=== PATIENT | male | born 1985 | race Caucasian/White ===

== ENCOUNTER 2016-08-10 11:28 | Emergency (ER) | payer MEDICAID, OTHER ==
[~2016-08-10] VITALS: Ht 165.1 cm; Wt 90.7 kg
[2016-08-10 11:28] VITALS: BP 170/105
[2016-08-10] MEDS ORDERED: AMOX500C PO (12:03)
== END 2016-08-10 12:07 | disposition home or self-care (01) ==
LOC: M ED 12:03
DX: J02.0 Streptococcal pharyngitis (principal); F17.200 Nicotine dependence, unspecified, uncomplicated

== ENCOUNTER 2017-05-20 12:16 | Emergency (ER) | payer OTHER ==
[2017-05-20] MEDS: AMOXICILLIN 500 MG CAP PO (12:48)
[2017-05-20] MEDS: IBUPROFEN 800 MG TAB PO (12:48)
== END 2017-05-20 12:50 | disposition home or self-care (01) ==
LOC: M ED 12:16
DX: K02.9 Dental caries, unspecified (principal); R68.84 Jaw pain; R22.0 Localized swelling, mass and lump, head; F17.210 Nicotine dependence, cigarettes, uncomplicated
CPT/HCPCS: 99282

== ENCOUNTER → 2017-06-20 | Outpatient (REF) | payer OTHER ==
[2017-06-20 12:06] LABS: ALBUMIN 4.1 GM/DL (3.2-5.2); ANION GAP 4 MEQ/L (8-16); BLOOD UREA NITROGEN 18 MG/DL (7-18); CARBON DIOXIDE LEVEL 28 MEQ/L (21-32); CHLORIDE LEVEL 106 MEQ/L (98-107); CREATININE FOR GFR 1.02 MG/DL (0.70-1.30); GLOMERULAR FILTRATION RATE > 60.0 (>60); GLUCOSE, FASTING 102 MG/DL (70-100); PHOSPHORUS LEVEL 2.7 MG/DL (2.5-4.9); POTASSIUM SERUM 4.1 MEQ/L (3.5-5.1); SODIUM LEVEL 138 MEQ/L (136-145)
== END ==
LOC: M SFHCPLAZ 08:38
DX: I10 Essential (primary) hypertension (principal)

== ENCOUNTER → 2018-03-23 | Outpatient (REF) | payer OTHER ==
[~2018-03-23] MED LIST: AMOX500C PO; AUGM875T28 PO; IBUP80TA PO; LISI20TA3 PO
[2018-03-23 13:19] LABS: INFLUENZA A AMPLIFICATION NEGATIVE (NEGATIVE); INFLUENZA B AMPLIFICATION NEGATIVE (NEGATIVE)
== END ==
LOC: M LAB REF 12:34
PROVIDERS: ATTEND Physician Assistant Medical
DX: J11.1 Influenza due to unidentified influenza virus with other respiratory manifestations (principal)

== ENCOUNTER → 2018-10-25 | Outpatient (REF) | payer OTHER ==
[~2018-10-25] MED LIST changes: +LISI20TA20 PO; -LISI20TA3 PO
== END ==
LOC: M SFHCPLAZ 17:16
DX: R00.0 Tachycardia, unspecified (principal)

== ENCOUNTER 2018-11-21 08:47 | Emergency (ER) | payer OTHER ==
[~2018-11-21] VITALS: Ht 165.1 cm; Wt 100.2 kg
[2018-11-21] MEDS ORDERED: OMEP-221 (08:54)
[2018-11-21] MEDS ORDERED: CARA1TAB6 PO (10:27)
[2018-11-21 10:35] VITALS: BP 148/87
== END 2018-11-21 10:45 | disposition home or self-care (01) ==
LOC: M ED 08:47
DX: K29.70 Gastritis, unspecified, without bleeding (principal); K21.9 Gastro-esophageal reflux disease without esophagitis; I10 Essential (primary) hypertension; F17.200 Nicotine dependence, unspecified, uncomplicated; Z79.899 Other long term (current) drug therapy

== ENCOUNTER → 2018-12-04 | Outpatient (REF) | payer OTHER ==
[~2018-12-04] MED LIST changes: +CARA1TAB6 PO; +OMEP-221
== END ==
LOC: M SFHCPLAZ 12:15
PROVIDERS: ATTEND Family Medicine
DX: R00.0 Tachycardia, unspecified (principal); L83 Acanthosis nigricans; Z53.9 Procedure and treatment not carried out, unspecified reason

== ENCOUNTER → 2018-12-05 | Outpatient (CLI) | payer OTHER ==
[2018-12-05 09:48] LABS: BASO # 0.1 10^3/uL (0.0-0.2); BASO % 0.6 % (0.0-1.0); EOS # 0.5 10^3/uL (0.0-0.5); EOS % 5.9 % (0.0-3.0); HEMATOCRIT 49.7 % (42.0-52.0); HEMOGLOBIN 16.9 g/dl (13.5-17.5); MEAN CORPUSCULAR HEMOGLOBIN 30.4 pg (27.0-33.0); MEAN CORPUSCULAR VOLUME 89.4 fl (80.0-96.0); MONO % 10.8 % (0.0-5.0); NEUTROPHILS # 4.2 10^3/uL (1.5-8.5); NEUTROPHILS % 48.1 % (36.0-66.0); PLATELET COUNT, AUTOMATED 191 10^3/uL (150-450); RED BLOOD COUNT 5.56 10^6/uL (4.30-6.10); WHITE BLOOD COUNT 8.8 10^3/uL (4.0-10.0)
[2018-12-05 10:06] LABS: HEMOGLOBIN A1c 5.8 %
[2018-12-05 10:37] LABS: BLOOD UREA NITROGEN 17 MG/DL (7-18); CALCIUM LEVEL 8.5 MG/DL (8.5-10.1); CARBON DIOXIDE LEVEL 29 MEQ/L (21-32); CHLORIDE LEVEL 106 MEQ/L (98-107); CHOLESTEROL LEVEL 219 MG/DL (<200); CHOLESTEROL RISK RATIO 8.111 (<5); CREATININE FOR GFR 1.05 MG/DL (0.70-1.30); GLOMERULAR FILTRATION RATE > 60.0 (>60); GLUCOSE, FASTING 127 MG/DL (70-100); HDL CHOLESTEROL 27 MG/DL (>40); NON-HDL-C 192 MG/DL; POTASSIUM SERUM 4.8 MEQ/L (3.5-5.1); SODIUM LEVEL 141 MEQ/L (136-145); TRIGLYCERIDES LEVEL 2174 MG/DL (<150)
== END ==
LOC: M LAB 09:01
PROVIDERS: ATTEND Family Medicine
DX: R00.0 Tachycardia, unspecified (principal); L83 Acanthosis nigricans

== ENCOUNTER → 2018-12-06 | Outpatient (REF) | payer OTHER | LOC: M SFHCPLAZ 08:44 | PROVIDERS: ATTEND Family Medicine | DX: E78.1 Pure hyperglyceridemia (principal); Z53.9 Procedure and treatment not carried out, unspecified reason ==

== ENCOUNTER → 2018-12-11 | Outpatient (CLI) | payer OTHER ==
[2018-12-11 10:08] LABS: CHOLESTEROL LEVEL 179 MG/DL (<200); HDL CHOLESTEROL 38 MG/DL (>40); NON-HDL-C 141 MG/DL; TRIGLYCERIDES LEVEL 400 MG/DL (<150)
[2018-12-21 00:07] LABS: LIPOPROTEIN (a) <9.0 nmol/L (<75.0)
== END ==
LOC: M LAB 08:52
PROVIDERS: ATTEND Family Medicine
DX: E78.1 Pure hyperglyceridemia (principal)

== ENCOUNTER 2018-12-27 09:35 | Emergency (ER) | payer OTHER ==
[~2018-12-27] VITALS: Ht 165.1 cm; Wt 99.9 kg
[2018-12-27] MEDS ORDERED: GEMF600T5 (09:43)
[2018-12-27] MEDS ORDERED: ONDANSETRON 4MG/2ML VIAL (J2405) IV ONE (10:15)
[2018-12-27] MEDS ORDERED: NS 1,000 ML IV ONE (10:15)
[2018-12-27 10:46] LABS: BASO # 0.1 10^3/uL (0.0-0.2); BASO % 0.5 % (0.0-1.0); EOS # 0.4 10^3/uL (0.0-0.5); EOS % 3.2 % (0.0-3.0); HEMATOCRIT 50.6 % (42.0-52.0); HEMOGLOBIN 17.2 g/dl (13.5-17.5); LYMPH # 2.6 10^3/uL (1.5-5.0); LYMPH % 22.1 % (24.0-44.0); MEAN CORPUSCULAR HEMOGLOBIN 29.7 pg (27.0-33.0); MEAN CORPUSCULAR VOLUME 87.4 fl (80.0-96.0); MONO # 1.2 10^3/uL (0.0-0.8); MONO % 10.4 % (0.0-5.0); NEUTROPHILS # 7.4 10^3/uL (1.5-8.5); NEUTROPHILS % 63.1 % (36.0-66.0); PLATELET COUNT, AUTOMATED 210 10^3/uL (150-450); RED BLOOD COUNT 5.79 10^6/uL (4.30-6.10); WHITE BLOOD COUNT 11.7 10^3/uL (4.0-10.0)
[2018-12-27] MEDS ORDERED: PANTOPRAZOLE 40MG INJ (PROTONIX) (C9113) IV ONE (11:30)
[2018-12-27 11:33] LABS: ALBUMIN 3.9 GM/DL (3.2-5.2); ALT/SGPT 46 U/L (12-78); AMYLASE 80 U/L (25-115); BILIRUBIN,TOTAL 0.5 MG/DL (0.2-1.0); BLOOD UREA NITROGEN 14 MG/DL (7-18); CALCIUM LEVEL 9.2 MG/DL (8.5-10.1); CARBON DIOXIDE LEVEL 22 MEQ/L (21-32); CHLORIDE LEVEL 107 MEQ/L (98-107); GLOMERULAR FILTRATION RATE > 60.0 (>60); GLUCOSE, FASTING 93 MG/DL (70-100); H PYLORI QUALITATIVE IgG NEGATIVE (NEGATIVE); LIPASE 313 U/L (73-393); POTASSIUM SERUM 4.3 MEQ/L (3.5-5.1); SODIUM LEVEL 139 MEQ/L (136-145); TOTAL PROTEIN 7.8 GM/DL (6.4-8.2)
[2018-12-27] MEDS ORDERED: ISOVUE-370 76% 100ML VIAL (Q9967) As Ordered ONE (11:46)
[2018-12-27 13:40] LABS: APPEARANCE, URINE CLEAR (CLEAR); BACTERIA, URINE AUTO NEGATIVE (NEGATIVE); BILIRUBIN, URINE AUTO NEGATIVE (NEGATIVE); BLOOD, URINE BLOOD NEGATIVE (NEGATIVE); COLOR, URINE YELLOW (YELLOW); GLUCOSE, URINE (UA) AUTO NEGATIVE (NEGATIVE); KETONE, URINE AUTO NEGATIVE (NEGATIVE); LEUKOCYTE ESTERASE, URINE AUTO NEGATIVE (NEGATIVE); NITRITE, URINE AUTO NEGATIVE (NEGATIVE); PROTEIN, URINE AUTO NEGATIVE (NEGATIVE); RBC, URINE AUTO 0 /HPF (0-3); SQUAMOUS EPITHELIAL CELL UR AU 0 /HPF (0-6); UROBILINOGEN, URINE AUTO 0.2 mg/dL (0.0-2.0); WBC, URINE AUTO 0 /HPF (0-3)
[2018-12-27] MEDS ORDERED: KETOROLAC 30 MG/ML VIAL (J1885) IV ONE (13:45)
[2018-12-27] MEDS ORDERED: METOCLOPRAMIDE INJ 10MG/2ML VIAL (J2765) IV ONE (13:45)
--- NOTE | 2018-12-27 14:06 | REP ---
CT ABDOMEN AND PELVIS WITH IV CONTRAST: TECHNIQUE: Axial contrast enhanced images from the lung bases to the pubic symphysis using 100 mL Isovue 370 intravenous contrast material with multiplanar reformations. Visualized lung bases are clear. The liver demonstrates no mass. There are tiny gallstones in the gallbladder. There is diffuse fatty infiltration of the liver. There is no biliary dilatation or gallbladder wall edema. Spleen is normal in size with no intrinsic abnormality. The adrenal glands are normal. Tiny calcifications are scattered throughout the pancreas compatible with prior pancreatitis. There is no hydronephrosis or renal mass. There is no abdominal aortic aneurysm. There is no adenopathy. There is no free air or free fluid. There is diffuse mild to moderate dilatation of small and large bowel, filled with air and fluid without bowel wall thickening. Findings are most consistent with diffuse enteritis. There is no appendicitis. Urinary bladder is mildly distended and grossly unremarkable. Note is made of spondylolysis of L5 with mild anterior grade 1 spondylolisthesis of L5 on S1. IMPRESSION: Diffuse dilatation of small and large bowel with air and fluid of a mild to moderate degree compatible with diffuse ileus and enteritis. No bowel inflammation or appendicitis. No free air or free fluid. Tiny gallstones are seen in the gallbladder without gallbladder wall edema. There is no biliary dilatation. Tiny calcifications of the pancreas compatible with prior pancreatitis. There is bilateral spondylolysis of L5 with mild anterior grade 1 spondylolisthesis of L5 on S1. Electronically Signed by Miguel Jackson MD 12/28/2018 11:16 A
[2018-12-27] MEDS ORDERED: CIPR-249 PO (14:12)
[2018-12-27] MEDS ORDERED: FLAG500T PO (14:12)
[2018-12-27 14:19] VITALS: BP 150/84
== END 2018-12-27 14:30 | disposition home or self-care (01) ==
LOC: M ED 09:35
DX: K52.9 Noninfective gastroenteritis and colitis, unspecified (principal); K80.20 Calculus of gallbladder without cholecystitis without obstruction; M43.16 Spondylolisthesis, lumbar region; K21.9 Gastro-esophageal reflux disease without esophagitis; F17.200 Nicotine dependence, unspecified, uncomplicated; Z79.899 Other long term (current) drug therapy
CPT/HCPCS: 74177; 80053; 81001; 82150; 83690; 85025; 86677; 87507; 96361; 96374; 96375; 99284; C9113; J1885; J2405; J2765; Q9967

== ENCOUNTER → 2019-02-17 | Outpatient (CLI) | payer OTHER ==
[~2019-02-17] MED LIST changes: +CIPR-249 PO; +FLAG500T PO; +GEMF600T5
[2019-02-17 10:00] LABS: CHOLESTEROL LEVEL 234 MG/DL (<200); CHOLESTEROL RISK RATIO 8.357 (<5); HDL CHOLESTEROL 28 MG/DL (>40); NON-HDL-C 206 MG/DL; TRIGLYCERIDES LEVEL 1441 MG/DL (<150)
== END ==
LOC: M LAB 08:48
PROVIDERS: ATTEND Family Medicine
DX: E78.1 Pure hyperglyceridemia (principal)

== ENCOUNTER 2019-07-22 13:20 | Emergency (ER) | payer OTHER ==
[~2019-07-22] VITALS: Ht 167.6 cm; Wt 102.3 kg
[2019-07-22] MEDS ORDERED: ATOR40TA75 (13:29)
[2019-07-22] MEDS ORDERED: NS 1,000 ML IV ONE (14:15)
[2019-07-22 14:48] LABS: BASO # 0.1 10^3/uL (0.0-0.2); BASO % 0.6 % (0.0-1.0); EOS # 0.5 10^3/uL (0.0-0.5); EOS % 3.8 % (0.0-3.0); LYMPH # 3.3 10^3/uL (1.5-5.0); LYMPH % 25.8 % (24.0-44.0); MEAN CORPUSCULAR HEMOGLOBIN 28.8 pg (27.0-33.0); MEAN CORPUSCULAR HGB CONC 33.4 g/dl (32.0-36.5); MEAN CORPUSCULAR VOLUME 86.1 fl (80.0-96.0); MONO # 1.3 10^3/uL (0.0-0.8); MONO % 9.9 % (0.0-5.0); NEUTROPHILS # 7.5 10^3/uL (1.5-8.5); NEUTROPHILS % 58.9 % (36.0-66.0); PLATELET COUNT, AUTOMATED 200 10^3/uL (150-450)
[2019-07-22 14:51] LABS: HEMATOCRIT 52.7 % (42.0-52.0); HEMOGLOBIN 17.6 g/dl (13.5-17.5); RED BLOOD COUNT 6.12 10^6/uL (4.30-6.10); WHITE BLOOD COUNT 12.8 10^3/uL (4.0-10.0)
[2019-07-22 15:05] LABS: INR 1.05; PROTHROMBIN TIME 13.4 SECONDS (11.8-14.0)
[2019-07-22 15:13] LABS: ALBUMIN 3.9 GM/DL (3.2-5.2); ALT/SGPT 70 U/L (12-78); AMYLASE 88 U/L (25-115); BILIRUBIN,DIRECT 0.1 MG/DL (0.0-0.2); BILIRUBIN,TOTAL 0.5 MG/DL (0.2-1.0); BLOOD UREA NITROGEN 15 MG/DL (7-18); CALCIUM LEVEL 9.3 MG/DL (8.5-10.1); CARBON DIOXIDE LEVEL 26 MEQ/L (21-32); CHLORIDE LEVEL 107 MEQ/L (98-107); CK-MB VALUE MASS 5.3 NG/ML (<3.6); CPK CREATINE PHOSPHOKINASE 420 U/L (39-308); CREATININE FOR GFR 0.94 MG/DL (0.70-1.30); GLOMERULAR FILTRATION RATE > 60.0 (>60); GLUCOSE, FASTING 107 MG/DL (70-100); LIPASE 281 U/L (73-393); MB/CK RELATIVE INDEX 1.26 (< OR =4); POTASSIUM SERUM 4.2 MEQ/L (3.5-5.1); SODIUM LEVEL 139 MEQ/L (136-145); TOTAL PROTEIN 8.1 GM/DL (6.4-8.2); TROPONIN I < 0.02 NG/ML (< 0.10)
[2019-07-22] MEDS ORDERED: ISOVUE-370 76% 100ML VIAL As Ordered ONE (15:19)
--- NOTE | 2019-07-22 16:13 | REP ---
CT ABDOMEN AND PELVIS WITH IV CONTRAST: TECHNIQUE: Axial contrast enhanced images from the lung bases to the pubic symphysis using 100 mL Isovue-370 intravenous contrast material with multiplanar reformations. Visualized lung bases are clear. There is diffuse fatty infiltration of the liver. The gallbladder contains gallstones and is somewhat contracted. There is no gallbladder wall edema and no evidence of biliary dilatation. Spleen is normal in size with no intrinsic abnormality. Adrenal glands demonstrate no mass. There are multiple tiny calcifications in the body and tail of the pancreas consistent with chronic pancreatitis. There is no pancreatic duct dilatation. I seen on pancreatic mass. The kidneys demonstrate no hydronephrosis or mass. There is no abdominal aortic aneurysm. There is no adenopathy. There is no free air or free fluid. There is no bowel wall thickening and no evidence of bowel obstruction. The appendix is normal. There is no pelvic mass. The urinary bladder is mildly distended and grossly unremarkable. There is spondylolysis of L5 anterior grade 1 spondylolisthesis. IMPRESSION: No CT evidence of appendicitis. The appendix is normal. No free air or free fluid. No bowel obstruction. Gallstones in a contracted gallbladder. No gallbladder wall edema or biliary dilatation. Tiny pancreatic calcifications compatible with chronic pancreatitis. Fatty infiltration of the liver. Spondylolysis of L5 with grade 1 spondylolisthesis. Electronically Signed by Miguel Jackson MD 07/22/2019 04:57 P
[2019-07-22 16:39] VITALS: BP 179/99
[2019-07-22] MEDS ORDERED: ONDA4TAB6 PO (16:39)
--- NOTE | 2019-07-23 00:34 | ECGEPIP ---
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
== END 2019-07-22 16:56 | disposition home or self-care (01) ==
LOC: M ED 13:20
DX: K80.20 Calculus of gallbladder without cholecystitis without obstruction (principal); E86.0 Dehydration; I10 Essential (primary) hypertension; F17.210 Nicotine dependence, cigarettes, uncomplicated; Z79.899 Other long term (current) drug therapy
CPT/HCPCS: 36415; 74177; 80048; 80076; 81001; 82150; 82550; 82553; 83690; 85025; 85610; 85730; 93005; 96360; 96361; 99284; Q9967

== ENCOUNTER → 2019-08-06 | Outpatient (CLI) | payer OTHER ==
[~2019-08-06] MED LIST changes: +ATOR40TA75; +ONDA4TAB6 PO
[2019-08-06 11:32] LABS: CHOLESTEROL RISK RATIO 4.205 (<5)
== END ==
LOC: M LAB 10:29
PROVIDERS: ATTEND Family Medicine
DX: R73.9 Hyperglycemia, unspecified (principal)

== ENCOUNTER → 2019-08-06 | Outpatient (REF) | payer OTHER | LOC: M SFHCPLAZ 10:04 | PROVIDERS: ATTEND Family Medicine | DX: E78.1 Pure hyperglyceridemia (principal) ==

== ENCOUNTER → 2019-09-04 | Outpatient (CLI) | payer OTHER ==
[~2019-09-04] MED LIST changes: -ATOR40TA75; +ATOR40TA75 PO; +NORC1TAB7 PO; -OMEP-221; +OMEP-221 PO
== END ==
LOC: M LABSMTC 12:54
PROVIDERS: ATTEND Anesthesiology
DX: Z03.818 Encounter for observation for suspected exposure to other biological agents ruled out (principal); Z11.59 Encounter for screening for other viral diseases
CPT/HCPCS: C9803; U0003

== ENCOUNTER 2019-09-09 06:04 | Day surgery (SDC) | payer OTHER ==
[~2019-09-09] VITALS: Ht 167.6 cm; Wt 108.9 kg
[~2019-09-09 06:04] MED LIST changes: +LR 1,000 ML IV ONE; -NORC1TAB7 PO
[2019-09-09] MEDS ORDERED: fentaNYL 250 MCG/5 ML INJECTION (J3010) As Ordered ONE (06:54)
[2019-09-09] MEDS ORDERED: MIDAZOLAM INJ 2MG/2ML VIAL (J2250 PER 1MG) As Ordered ONE (06:54)
[2019-09-09] MEDS ORDERED: dexameTHASONE 4 MG/ML 1ML VIAL (J1100 PER 1MG) As Ordered ONE (06:55)
[2019-09-09] MEDS ORDERED: ROCURONIUM BROMIDE 50 MG/5 ML VIAL As Ordered ONE (06:55)
[2019-09-09] MEDS ORDERED: propofoL 200 MG/20 ML VIAL As Ordered ONE (06:55)
[2019-09-09] MEDS ORDERED: SUGAMMADEX SODIUM 500 MG/5 ML VIAL (BRIDION) As Ordered ONE (06:55)
[2019-09-09] MEDS ORDERED: PHENYLephrine HCL 500 MCG/5 ML (100MCG/ML) SYRINGE (J2370) As Ordered ONE ×2 (06:55→07:50)
[2019-09-09] MEDS ORDERED: LIDOCAINE 2% 100MG/5ML SDV (FOR ANES.) As Ordered ONE ×2 (06:55→08:33)
[2019-09-09] MEDS ORDERED: ONDANSETRON 4MG/2ML VIAL As Ordered ONE ×2 (06:55→09:18)
[2019-09-09] MEDS ORDERED: ePHEDrine SULFATE 25 MG/5 ML(5MG/ML) SYRINGE As Ordered ONE (06:55)
[2019-09-09] MEDS ORDERED: BUPIVACAINE HCL 0.25% 30ML VIAL As Ordered ONE (07:08)
[2019-09-09] MEDS ORDERED: VASOPRESSIN INJ 20 UNITS/ML VIAL As Ordered ONE (07:54)
[2019-09-09] MEDS ORDERED: ACETAMINOPHEN 1000MG 100ML IV BTL (OFIRMEV) (J0131 PER 10MG) As Ordered ONE (08:00)
[2019-09-09] MEDS ORDERED: ESMOLOL INJ 100MG/10ML VIAL As Ordered ONE (08:12)
[2019-09-09] MEDS ORDERED: NORC1TAB7 PO (09:15)
[2019-09-09] MEDS ORDERED: fentaNYL 100 MCG/2 ML INJECTION (J3010) As Ordered ONE (09:18)
[2019-09-09] MEDS ORDERED: PERCOCET 5MG/325MG TAB As Ordered ONE (09:34)
[2019-09-09] MEDS ORDERED: LR 1,000 ML IV SCH (10:00)
[2019-09-09] MEDS ORDERED: PERCOCET 5MG/325MG TAB PO PRN (10:00)
[2019-09-09] MEDS ORDERED: fentaNYL 100 MCG/2 ML INJECTION (J3010) IV PRN (10:00)
[2019-09-09] MEDS ORDERED: NORCO, ANEXSIA 5/325MG TABLET (HYDROcodone/ACETAMINOPHEN) PO PRN (10:00)
[2019-09-09] MEDS ORDERED: ONDANSETRON 4MG/2ML VIAL IV PRN (10:00)
[2019-09-09] MEDS ORDERED: MEPERIDINE INJ 25 MG/ML VIAL (J2175) IV PRN (10:00)
[2019-09-09] MEDS ORDERED: METOCLOPRAMIDE INJ 10MG/2ML VIAL (J2765 PER 1) IV PRN (10:00)
[2019-09-09] MEDS ORDERED: IBUPROFEN 600MG TAB PO PRN (10:00)
[2019-09-09] MEDS ORDERED: ACETAMINOPHEN TAB 650MG DOSE (2X325MG) PO PRN (10:00)
[2019-09-09 10:40] VITALS: BP 162/91
--- NOTE | 2019-09-15 22:51 | RO ---
DATE OF PROCEDURE: 09/09/2019 PREOPERATIVE DIAGNOSIS: Symptomatic gallstones. POSTOPERATIVE DIAGNOSIS: Symptomatic gallstones. PROCEDURE PERFORMED: Robotic-assisted laparoscopic cholecystectomy. SURGEON: Dany Pettit MD MEAT BONER AND SLICER: Aimee Cullen NP. Aimee Cullen's assistance was required with management of the robotic instruments, changing instruments, as well as closing the incisions. ANESTHESIA: General. INDICATIONS FOR THE PROCEDURE: Patient is a 33-year-old man who has suffered episodic upper abdominal pain and was found to have cholelithiasis. He is now for a laparoscopic cholecystectomy. DESCRIPTION OF PROCEDURE: The patient was brought to the operating room and placed on the table in a supine position. He was placed under general endotracheal anesthesia. The patient's abdomen was prepped and draped in a sterile fashion. 0.25% Marcaine was infiltrated at each of the trocar sites as needed. Initial entry was in the left upper quadrant. A short transverse incision was made and a Veress needle was inserted. After a positive hanging drop test, the abdomen was insufflated with carbon dioxide gas. An 8 mm robotic port was placed over a 5 mm scope and this was advanced through the abdominal wall without difficulty. Initial exam showed no evidence of Veress needle or trocar injury. The gallbladder appeared somewhat blunted at the edges and slightly darker in color than usual. The gallbladder was not initially seen. Visualized portions of the stomach and small and large bowel appeared normal. An 8 mm port was placed just above the umbilicus and two additional 8 mm ports were placed in the right mid and lower abdomen. The patient cart of the da April system was brought into position. The camera port was docked and targeting took place the right upper quadrant. The additional robotic arms were then docked and a grasping retractor, Force Bipolar and a cauterizing scissors were placed. I then moved to the control console to proceed with the operation. The edge of the liver was elevated and the gallbladder was identified. This appeared to be small and was clearly not acutely inflamed but was somewhat thick-walled. The gallbladder was grasped and elevated. Dissection was begun near the gallbladder neck. The tissues were opened, and the cholecystic artery was identified first. This was doubly clipped with Hem-o-corinne clips and divided. With further dissection, the cystic duct was also clearly identified, and this was also doubly clipped with Hem-o-corinne clips and divided. The gallbladder was then dissected free from the gallbladder bed. The gallbladder was not perforated in the course of dissection. Gallbladder was placed in an Endopouch. Final inspection revealed no evidence of bleeding or bile leak. The robotic instruments were undocked and the patient cart was withdrawn. I returned to the patient's side and removed the gallbladder through the supraumbilical site. This required extending the fascial incision slightly. The fascia was closed then with interrupted simple sutures of #2-0 Vicryl. The skin incisions were all closed with buried #4-0 Vicryl and Steri-Strips. Light dressings were applied. The patient tolerated the procedure well without apparent complication. He was awakened in the operating room, extubated and moved to the recovery room in stable condition.
== END 2019-09-09 10:54 | disposition home or self-care (01) ==
LOC: M SDC 06:04
PROVIDERS: ATTEND Surgery
DX: K80.10 Calculus of gallbladder with chronic cholecystitis without obstruction (principal); I10 Essential (primary) hypertension; E78.5 Hyperlipidemia, unspecified; Z79.899 Other long term (current) drug therapy
CPT/HCPCS: 47562; 88304; J0131; J1100; J2250; J2370; J2405; J3010

== ENCOUNTER 2019-12-08 14:18 | Emergency (ER) | payer OTHER ==
[~2019-12-08] VITALS: Ht 170.2 cm; Wt 104.1 kg
[~2019-12-08 14:18] MED LIST changes: -LR 1,000 ML IV ONE; +NORC1TAB7 PO
[2019-12-08] MEDS ORDERED: IBUPROFEN 800 MG TAB PO ONE (17:00)
[2019-12-08] MEDS ORDERED: GI COCKTAIL 50ML BTL(HYOSCYAMINE/MAALOX/LIDOCAINE VISCOUS)(1:3:1) PO ONE (17:00)
[2019-12-08 18:05] LABS: BASO # 0.1 10^3/uL (0.0-0.2); BASO % 0.4 % (0.0-1.0); EOS # 0.3 10^3/uL (0.0-0.5); EOS % 1.8 % (0.0-3.0); HEMATOCRIT 52.3 % (42.0-52.0); HEMOGLOBIN 17.4 g/dl (13.5-17.5); LYMPH # 2.7 10^3/uL (1.5-5.0); LYMPH % 19.4 % (24.0-44.0); MEAN CORPUSCULAR HEMOGLOBIN 29.5 pg (27.0-33.0); MEAN CORPUSCULAR HGB CONC 33.3 g/dl (32.0-36.5); MEAN CORPUSCULAR VOLUME 88.8 fl (80.0-96.0); MONO # 1.2 10^3/uL (0.0-0.8); MONO % 8.5 % (0.0-5.0); NEUTROPHILS # 9.8 10^3/uL (1.5-8.5); NEUTROPHILS % 69.4 % (36.0-66.0); PLATELET COUNT, AUTOMATED 202 10^3/uL (150-450); RED BLOOD COUNT 5.89 10^6/uL (4.30-6.10); WHITE BLOOD COUNT 14.1 10^3/uL (4.0-10.0)
--- NOTE | 2019-12-08 18:14 | REPVR ---
PROCEDURE INFORMATION: Exam: XR Chest, 2 Views Exam date and time: 12/08/2019 5:36 PM Age: 34 years old Clinical indication: Cough; Additional info: Cough, sore throat TECHNIQUE: Imaging protocol: XR of the chest Views: 2 views. COMPARISON: No relevant prior studies available. FINDINGS: Lungs: There is no confluent infiltrate. The lungs are clear. Pleural space: No pneumothorax. No pleural effusions. Heart/Mediastinum: No cardiomegaly. Bones/joints: No acute osseous abnormality. IMPRESSION: No radiographic evidence of acute cardiopulmonary disease. Electronically signed by: Brannon Jones On 12/08/2019 18:14:26 PM
[2019-12-08] MEDS ORDERED: IBUP-1022 PO (18:35)
[2019-12-08] MEDS ORDERED: MAGICMW SSP (18:35)
[2019-12-08] MEDS ORDERED: FLON1SPR NARES (18:39)
[2019-12-08 18:41] VITALS: BP 126/67
--- NOTE | 2019-12-10 01:32 | ED PDOC ---
Post-Departure Follow-Up pt was called by me 12/09/19 1800 about respiratory panel results. He is feeling a little better. 12/10/19 130 ZEENAT WATSON PA-C Dec 10, 2019 01:32
== END 2019-12-08 18:48 | disposition home or self-care (01) ==
LOC: M ED 14:18
DX: R05 Cough (principal); R09.81 Nasal congestion; D72.829 Elevated white blood cell count, unspecified; J34.89 Other specified disorders of nose and nasal sinuses; I10 Essential (primary) hypertension; F17.200 Nicotine dependence, unspecified, uncomplicated

== ENCOUNTER 2019-12-17 18:23 | Emergency (ER) | payer OTHER ==
[~2019-12-17] VITALS: Ht 167.6 cm; Wt 105.2 kg
[~2019-12-17 18:23] MED LIST changes: +FLON1SPR NARES; +IBUP-1022 PO; +MAGICMW SSP
[2019-12-17] MEDS ORDERED: ACETAMINOPHEN 500 MG TAB PO ONE (21:15)
[2019-12-17] MEDS ORDERED: NS 1,000 ML IV ONE (21:15)
[2019-12-17] MEDS ORDERED: BENZONATATE 100 MG CAP PO ONE (21:15)
[2019-12-17 21:34] LABS: BASO # 0.1 10^3/uL (0.0-0.2); BASO % 0.4 % (0.0-1.0); EOS # 0.2 10^3/uL (0.0-0.5); EOS % 1.2 % (0.0-3.0); HEMATOCRIT 44.5 % (42.0-52.0); HEMOGLOBIN 14.7 g/dl (13.5-17.5); LYMPH # 3.1 10^3/uL (1.5-5.0); LYMPH % 24.2 % (24.0-44.0); MEAN CORPUSCULAR HEMOGLOBIN 28.4 pg (27.0-33.0); MEAN CORPUSCULAR VOLUME 86.1 fl (80.0-96.0); MONO # 1.2 10^3/uL (0.0-0.8); MONO % 9.2 % (0.0-5.0); NEUTROPHILS # 8.3 10^3/uL (1.5-8.5); NEUTROPHILS % 64.5 % (36.0-66.0); PLATELET COUNT, AUTOMATED 179 10^3/uL (150-450); RED BLOOD COUNT 5.17 10^6/uL (4.30-6.10); WHITE BLOOD COUNT 12.8 10^3/uL (4.0-10.0)
--- NOTE | 2019-12-17 21:49 | REPVR ---
PROCEDURE INFORMATION: Exam: XR Chest, 2 Views Exam date and time: 12/17/2019 9:08 PM Age: 34 years old Clinical indication: Other: Cough x 9 days; Additional info: Cough x9 days TECHNIQUE: Imaging protocol: XR of the chest Views: 2 views. COMPARISON: CR Chest, 2 view PA, Lat 12/08/2019 5:28 PM FINDINGS: Lungs: Unremarkable. No consolidation. Pleural space: Unremarkable. No pleural effusion. No pneumothorax. Heart/Mediastinum: Unremarkable. No cardiomegaly. Bones/joints: Unremarkable. IMPRESSION: Negative chest without change from 12/08/2019. Electronically signed by: Fernando Song On 12/17/2019 21:49:53 PM
[2019-12-17 21:57] LABS: BLOOD UREA NITROGEN 12 MG/DL (7-18); CALCIUM LEVEL 9.1 MG/DL (8.5-10.1); CARBON DIOXIDE LEVEL 28 MEQ/L (21-32); CHLORIDE LEVEL 101 MEQ/L (98-107); CREATININE FOR GFR 0.99 MG/DL (0.70-1.30); GLOMERULAR FILTRATION RATE > 60.0 (>60); GLUCOSE, FASTING 100 MG/DL (70-100); SODIUM LEVEL 137 MEQ/L (136-145)
[2019-12-17 22:42] VITALS: BP 133/72
[2019-12-17] MEDS ORDERED: TESS100C PO (23:03)
--- NOTE | 2019-12-18 19:20 | ECGEPIP ---
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
== END 2019-12-17 21:08 | disposition home or self-care (01) ==
LOC: M ED 18:23
DX: J06.9 Acute upper respiratory infection, unspecified (principal); R00.0 Tachycardia, unspecified; E78.5 Hyperlipidemia, unspecified; I10 Essential (primary) hypertension; K21.9 Gastro-esophageal reflux disease without esophagitis; Z79.899 Other long term (current) drug therapy

== ENCOUNTER → 2019-12-24 | Outpatient (REF) | payer OTHER ==
[~2019-12-24] MED LIST changes: +TESS100C PO
== END ==
LOC: M SFHCPLAZ 11:24
PROVIDERS: ATTEND Family Medicine
DX: E78.1 Pure hyperglyceridemia (principal)

== ENCOUNTER 2020-02-12 10:37 | Emergency (ER) | payer OTHER ==
[~2020-02-12] VITALS: Ht 167.6 cm; Wt 101.1 kg
[2020-02-12 11:21] LABS: BASO % 0.2 % (0.0-1.0); EOS # 0.1 10^3/uL (0.0-0.5); EOS % 0.5 % (0.0-3.0); HEMATOCRIT 43.2 % (42.0-52.0); HEMOGLOBIN 14.5 g/dl (13.5-17.5); LYMPH # 1.9 10^3/uL (1.5-5.0); LYMPH % 13.2 % (24.0-44.0); MEAN CORPUSCULAR HEMOGLOBIN 27.9 pg (27.0-33.0); MEAN CORPUSCULAR HGB CONC 33.6 g/dl (32.0-36.5); MEAN CORPUSCULAR VOLUME 83.2 fl (80.0-96.0); MONO # 1.5 10^3/uL (0.0-0.8); MONO % 10.6 % (0.0-5.0); NEUTROPHILS # 10.8 10^3/uL (1.5-8.5); NEUTROPHILS % 74.6 % (36.0-66.0); PLATELET COUNT, AUTOMATED 185 10^3/uL (150-450); RED BLOOD COUNT 5.19 10^6/uL (4.30-6.10); WHITE BLOOD COUNT 14.5 10^3/uL (4.0-10.0)
[2020-02-12 12:12] LABS: ALBUMIN 3.1 GM/DL (3.2-5.2); ALT/SGPT 60 U/L (12-78); BILIRUBIN,DIRECT 0.2 MG/DL (0.0-0.2); BILIRUBIN,TOTAL 1.1 MG/DL (0.2-1.0); BLOOD UREA NITROGEN 17 MG/DL (7-18); CALCIUM LEVEL 8.6 MG/DL (8.5-10.1); CARBON DIOXIDE LEVEL 28 MEQ/L (21-32); CHLORIDE LEVEL 90 MEQ/L (98-107); CK-MB VALUE MASS < 1.0 NG/ML (<3.6); CPK CREATINE PHOSPHOKINASE 216 U/L (39-308); CREATININE FOR GFR 1.21 MG/DL (0.70-1.30); GLOMERULAR FILTRATION RATE > 60.0 (>60); GLUCOSE, FASTING 472 MG/DL (70-100); LIPASE 518 U/L (73-393); MB/CK RELATIVE INDEX 0.46 (< OR =4); POTASSIUM SERUM 4.1 MEQ/L (3.5-5.1); SODIUM LEVEL 127 MEQ/L (136-145); TOTAL PROTEIN 7.1 GM/DL (6.4-8.2); TROPONIN I < 0.02 NG/ML (< 0.10)
[2020-02-12] MEDS ORDERED: ISOVUE-370 76% 100ML VIAL As Ordered ONE (12:13)
[2020-02-12] MEDS ORDERED: NS 1,000 ML IV ONE (12:30)
[2020-02-12 12:35] LABS: ACETONE/KETONE 10.77 MG/DL (<2.81); MAGNESIUM LEVEL 2.3 MG/DL (1.8-2.4); PHOSPHORUS LEVEL 3.3 MG/DL (2.5-4.9)
--- NOTE | 2020-02-12 12:42 | REP ---
INDICATION: left sided abd pain r/o diverticulitis COMPARISON: 07/22/2019. TECHNIQUE: CT Scan of the abdomen and pelvis was performed with intravenous administration of 100 cc of Isovue 370, and oral contrast. FINDINGS: Lung bases: Unremarkable. Liver: Liver is enlarged with an approximate length of 21 cm. There is diffuse fatty infiltration of the liver. Gallbladder: Prior cholecystectomy. No biliary dilatation. Spleen: Normal. Adrenals: Normal. Pancreas: The region of the body and tail of the pancreas there is moderate ill-defined inflammatory densities in the peripancreatic fat consistent with acute pancreatitis. There are also scattered tiny calcifications in these regions of the pancreas compatible with chronic pancreatitis. There is no pancreatic duct dilatation. Kidneys: Normal. Small and large bowel: Unremarkable. Free fluid: There is a tiny amount of free fluid adjacent to the tail the pancreas. Abdominal aorta: No aneurysm or dissection. Adenopathy: None. Appendix: Not inflamed. Osseous structures: There is again spondylolysis of L5, with stable anterior grade 1 spondylolisthesis of L5 on S1. Pelvis: No mass. IMPRESSION: Findings consistent with acute pancreatitis superimposed on findings of chronic pancreatitis. There is a tiny amount of free fluid adjacent to the tail of the pancreas. <Electronically signed by Miguel Jackson > 02/12/20 [id number]
[2020-02-12 12:47] LABS: OSMOLALITY SERUM 296 MOSM/KG (275-295)
[2020-02-12] MEDS ORDERED: PEN NEEDLE (USE WITH HUMULIN U-500 INSULIN PEN) XX ONE (13:30)
[2020-02-12] MEDS ORDERED: HUMULIN R U-500 KWIKPEN 500UNITS/ML 3ML SYRINGE (J1815 PER 5UNITS) SC ONE (13:30)
[2020-02-12] MEDS ORDERED: HumaLOG INSULIN (NovoLOG) PER UNIT SC STA (13:44)
[2020-02-12] MEDS ORDERED: METF-838 PO (15:10)
[2020-02-12 15:38] VITALS: BP 144/83
--- NOTE | 2020-02-12 18:18 | ECGEPIP ---
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
== END 2020-02-12 15:44 | disposition home or self-care (01) ==
LOC: M ED 10:37
DX: E11.9 Type 2 diabetes mellitus without complications (principal); K85.90 Acute pancreatitis without necrosis or infection, unspecified; I10 Essential (primary) hypertension; K21.9 Gastro-esophageal reflux disease without esophagitis; Z79.899 Other long term (current) drug therapy; Z79.84 Long term (current) use of oral hypoglycemic drugs; F17.210 Nicotine dependence, cigarettes, uncomplicated
CPT/HCPCS: 36415; 74177; 80048; 80076; 81001; 82010; 82550; 82553; 83036; 83690; 83735; 83930; 84100; 85025; 93005; 96360; 96361; 99285; Q9967

== ENCOUNTER → 2020-02-13 | Outpatient (REF) | payer OTHER ==
[~2020-02-13] MED LIST changes: +METF-838 PO
[2020-02-13 18:10] LABS: APPEARANCE, URINE CLEAR (CLEAR); BACTERIA, URINE AUTO NEGATIVE (NEGATIVE); BILIRUBIN, URINE AUTO NEGATIVE (NEGATIVE); BLOOD, URINE BLOOD 1+ (NEGATIVE); COLOR, URINE YELLOW (YELLOW); GLUCOSE, URINE (UA) AUTO 3+ mg/dL (NEGATIVE); KETONE, URINE AUTO 1+ mg/dL (NEGATIVE); LEUKOCYTE ESTERASE, URINE AUTO NEGATIVE (NEGATIVE); NITRITE, URINE AUTO NEGATIVE (NEGATIVE); PROTEIN, URINE AUTO 1+ mg/dL (NEGATIVE); RBC, URINE AUTO 0 /HPF (0-3); SPECIFIC GRAVITY URINE AUTO 1.032 (1.002-1.035); SQUAMOUS EPITHELIAL CELL UR AU 0 /HPF (0-6); UROBILINOGEN, URINE AUTO 0.2 mg/dL (0.0-2.0); WBC, URINE AUTO 1 /HPF (0-3)
== END ==
LOC: M SFHCPLAZ 16:58
PROVIDERS: ATTEND Student in an Organized Health Care Education/Training Program
DX: E11.9 Type 2 diabetes mellitus without complications (principal)

== ENCOUNTER → 2020-03-23 | Outpatient (CLI) | payer OTHER ==
[2020-03-23 10:12] LABS: CHOLESTEROL LEVEL 188 MG/DL (<200); CHOLESTEROL RISK RATIO 6.064 (<5); HDL CHOLESTEROL 31 MG/DL (>40); NON-HDL-C 157 MG/DL; TRIGLYCERIDES LEVEL 1065 MG/DL (<150)
[2020-03-23 10:26] LABS: HEMOGLOBIN A1c 9.7 %
[2020-03-29 15:14] LABS: INSULIN FREE 50 uU/mL (.); INSULIN TOTAL2 53 uU/mL (.)
== END ==
LOC: M LAB 08:33
PROVIDERS: ATTEND Family Medicine
DX: E11.9 Type 2 diabetes mellitus without complications (principal)

== ENCOUNTER → 2020-04-27 | Outpatient (REF) | payer OTHER ==
[2020-04-27 15:53] LABS: BLOOD UREA NITROGEN 15 MG/DL (7-18); CALCIUM LEVEL 9.4 MG/DL (8.5-10.1); CARBON DIOXIDE LEVEL 28 MEQ/L (21-32); CHLORIDE LEVEL 101 MEQ/L (98-107); CHOLESTEROL LEVEL 189 MG/DL (<200); CREATININE FOR GFR 0.81 MG/DL (0.70-1.30); GLOMERULAR FILTRATION RATE > 60.0 (>60); GLUCOSE, FASTING 198 MG/DL (70-100); HDL CHOLESTEROL 30 MG/DL (>40); NON-HDL-C 159 MG/DL; POTASSIUM SERUM 4.1 MEQ/L (3.5-5.1); SODIUM LEVEL 137 MEQ/L (136-145); TRIGLYCERIDES LEVEL 1131 MG/DL (<150)
== END ==
LOC: M SFHCPLAZ 10:55
PROVIDERS: ATTEND Family Medicine
DX: E78.1 Pure hyperglyceridemia (principal); R00.0 Tachycardia, unspecified

== ENCOUNTER → 2020-05-31 | Outpatient (REF) | payer OTHER | LOC: M SFHCPLAZ 13:26 | PROVIDERS: ATTEND Family Medicine | DX: E78.1 Pure hyperglyceridemia (principal) ==

== ENCOUNTER → 2020-07-06 | Outpatient (CLI) | payer OTHER ==
[2020-07-06 11:59] LABS: CHOLESTEROL LEVEL 213 MG/DL (<200); HDL CHOLESTEROL 30 MG/DL (>40); NON-HDL-C 183 MG/DL; TRIGLYCERIDES LEVEL 1981 MG/DL (<150)
== END ==
LOC: M LAB 09:11
PROVIDERS: ATTEND Family Medicine
DX: E78.1 Pure hyperglyceridemia (principal)

== ENCOUNTER → 2020-07-09 | Outpatient (REF) | payer OTHER | LOC: M SFHCPLAZ 12:13 | PROVIDERS: ATTEND Family Medicine | DX: E78.1 Pure hyperglyceridemia (principal); Z53.8 Procedure and treatment not carried out for other reasons ==

== ENCOUNTER → 2020-09-17 | Outpatient (REF) | payer OTHER | LOC: M SFHCPLAZ 08:40 | PROVIDERS: ATTEND Family Medicine | DX: E78.1 Pure hyperglyceridemia (principal); E11.69 Type 2 diabetes mellitus with other specified complication; Z53.8 Procedure and treatment not carried out for other reasons ==

== ENCOUNTER → 2020-10-11 | Outpatient (CLI) | payer OTHER ==
[~2020-10-11] MED LIST changes: +FARX1TAB3 PO; +FENO134C; -LISI20TA20 PO; +LISI20TA37 PO; -OMEP-221 PO; +OMEP40CA5 PO
[2020-10-11 11:25] LABS: CHOLESTEROL LEVEL 224 MG/DL (<200); CHOLESTEROL RISK RATIO 9.333 (<5); HDL CHOLESTEROL 24 MG/DL (>40); NON-HDL-C 200 MG/DL; TRIGLYCERIDES LEVEL 2122 MG/DL (<150)
[2020-10-11 13:07] LABS: HEMOGLOBIN A1c 7.7 %
== END ==
LOC: M PLALAB 07:11
PROVIDERS: ATTEND Family Medicine
DX: E78.1 Pure hyperglyceridemia (principal); E11.69 Type 2 diabetes mellitus with other specified complication

== ENCOUNTER → 2020-10-29 | Outpatient (CLI) | payer OTHER ==
[~2020-10-29] MED LIST changes: -FARX1TAB3 PO; -FENO134C; +LISI20TA20 PO; -LISI20TA37 PO; +OMEP-221 PO; -OMEP40CA5 PO
[2020-10-29 11:01] LABS: ALBUMIN 3.9 GM/DL (3.2-5.2); ALT/SGPT 173 U/L (12-78); BILIRUBIN,TOTAL 0.7 MG/DL (0.2-1.0); BLOOD UREA NITROGEN 12 MG/DL (7-18); CALCIUM LEVEL 9.1 MG/DL (8.5-10.1); CARBON DIOXIDE LEVEL 27 MEQ/L (21-32); CHLORIDE LEVEL 108 MEQ/L (98-107); CHOLESTEROL LEVEL 124 MG/DL (<200); CHOLESTEROL RISK RATIO 3.542 (<5); CREATININE FOR GFR 0.94 MG/DL (0.70-1.30); FERRITIN 985 NG/ML (26-388); GLOMERULAR FILTRATION RATE > 60.0 (>60); GLUCOSE, FASTING 98 MG/DL (70-100); HDL CHOLESTEROL 35 MG/DL (>40); IMMUNOGLOBULIN G 981 MG/DL (681-1648); IRON (FE) 78 UG/DL (65-175); LDL CHOLESTEROL 68 MG/DL (<100); NON-HDL-C 89 MG/DL; PERCENT SATURATION 17.3 % (19.7-50.0); POTASSIUM SERUM 4.3 MEQ/L (3.5-5.1); SODIUM LEVEL 138 MEQ/L (136-145); TOTAL IRON BINDING CAPACITY 450 UG/DL (250-450); TOTAL PROTEIN 7.4 GM/DL (6.4-8.2); TRIGLYCERIDES LEVEL 105 MG/DL (<150)
== END ==
LOC: M PLALAB 08:02
PROVIDERS: ATTEND Family Medicine
DX: E11.69 Type 2 diabetes mellitus with other specified complication (principal)

== ENCOUNTER → 2020-11-12 | Outpatient (CLI) | payer OTHER ==
[2020-11-12 10:45] LABS: ALBUMIN 4.2 GM/DL (3.2-5.2); BILIRUBIN,DIRECT 0.1 MG/DL (0.0-0.2); BILIRUBIN,TOTAL 0.5 MG/DL (0.2-1.0); TOTAL PROTEIN 7.6 GM/DL (6.4-8.2)
== END ==
LOC: M PLALAB 08:09
PROVIDERS: ATTEND Family Medicine
DX: E78.1 Pure hyperglyceridemia (principal)

== ENCOUNTER 2021-01-17 07:39 | Emergency (ER) | payer OTHER ==
[~2021-01-17] VITALS: Ht 165.1 cm; Wt 98.1 kg
--- OUTSIDE RECORDS SUMMARY | 2021-01-17 07:47 | CCD ---
Author Author [facility] Organization [facility] Address Unknown Phone Unavailable Care Team Providers Care Agent Telegrapher Name Role Phone Fawad Etienne Unavailable PROBLEMS Type Condition ICD9-CM Code IFL58-WI Code Onset Dates Condition S tatus W/U Status Risk SNOMED Code Notes Problem Obesity (BMI 30-39.9) E66.9 Active confirmed 494351090 Problem Status post insertion of lyle g-eluting stent into left anterior descending (LAD) artery Z95.5 Active confirmed 479207 [id number] Problem Coronary artery disease invo lving [place] coronary artery of [place] heart with unstable angina pectoris I25.110 Active confirmed 575545934 Problem Cigarette nicotine dependence without complication F17.210 Active confirmed 82680483 Problem Hypertension, unspecified type I10 Active confir med 19766834 Problem Acanthosis nigricans L83 Active confirmed 622789607 Problem Hypertriglyceridemia E78.1 Active confirmed 663185231 Problem Obstructive sleep apnea G47.33 Active confirmed 20312862 Problem Type 2 diabetes mellitus wit h other specified complication, without long-term current use of insulin E11.69 Active confirmed 35768423 Problem Indigestion K30 Active confirmed 27771153 9 Problem Nicotine use disorder F17.200 Active confirmed 78172707 Problem Daytime somnolence R40.0 Active confirmed 1 16083652589 Problem Symptomatic cholelithiasis K80.20 Active confirmed 706081832 Problem Hypercholesteremia E78.00 Active confirmed 1 4425898 Problem New onset type 2 diabetes mellitus E11.9 Activ e confirmed 58595238 Problem Gastroesophageal reflux disease without esophagitis K21.9 Active confirmed 675057166 ALLERGIES No Known Allergies ENCOUNTERS from 1984 to 2020-11-19 Encounter Location Date Provider Diagnosis [facility] Resident [address] [facility] [address] [phone] [place] [address] Oct, Fawad Etienne Hypertriglyceridemia E78.1 ; Type 2 diabetes mellitus with other specified complication, without long-term current use of insulin E11.69 ; Nicotine use disorder F17.200 and Blepharitis of left upper eyelid, unspecified type H01.004 IMMUNIZATIONS No Information SOCIAL HISTORY Tobacco Use: Social History Observation Description Date Details (start date - stop date) Current Smoker Sex Assigned At : Social History Observation Description Sex Assigned At Unknown Education: Question Answer Notes Level of Education: High School Audit Question Answer Notes Total Score: 0 Interpretation: Alcohol Education Language: Question Answer Notes Languages spoken: Gambian Latter Day: Question Answer Notes Latter Day No mosque beliefs that would impact health care. Sexual Hx: Question Answer Notes Had sex in the last 12 months (vaginal, oral, or anal)? No Have you ever had an STD? No Drug and Alcohol Question Answer Notes Total Score: 0 Interpretation: No problems reported Alcohol Screening: Question Answer Notes Did you have a drink containing alcohol in the past year? Ye s Points 1 Interpretation Negative How often did you have six or more drinks on one occas ion in the past year? Never (0 points) How many drinks did you have on a typica l day when you were drinking in the past year? 1 or 2 (0 points) How often did you have a drink containing alcohol in t he past year? Monthly or less (1 point) Tobacco Use: Question Answer Notes Are you a: current smoker Patient counseled on the dangers of tobacco use and urged to quit: 12/04/2018 How many cigarettes a day do you smoke? 11-20 Are you interested in quitting? Not ready to quit Counseled the patient on smoking effects, education provided 12/04/2018 REASON FOR REFERRAL No Information VITAL SIGNS Weight 226.4 lbs Oct, Weight-kg 102.69 kg Oct, Height 67 in Oct, BMI 35.46 kg/m2 Oct, Heart Rate 108 /min Oct, Respiratory Rate 18 /min Oct, Temperature 96.8 degrees Fahrenheit Oct, Oximetry 98 Oct, Blood pressure systolic 124 mm Hg Oct, Blood pressure diastolic 84 mm Hg Oct, MEDICATIONS Medication SIG (Take, Route, Frequency, Duration) Notes Start Da te End Date Status Lisinopril-hydroCHLOROthiazide 20-25 MG 1 tablet Orally Once a day Active metFORMIN HCl ER 500 MG TAKE FOUR TABLETS BY MOUTH E VERY DAY WITH EVENING MEAL for 90 Active Fenofibrate Micronized 200 MG take one capsule by mout h every day with a meal Orally Once a day for 30 days Ac tive Farxiga 10 MG 1 tablet Orally Once a day for 30 day(s) Active Omeprazole 40 MG 1 capsule 30 minutes before morning meal Orally Daily for 90 days Active Atorvastatin Calcium 80 MG 1 tablet Orally Once a day for 90 days Active metFORMIN HCl ER 500 MG 2 tablets in am, 2 tablets in pm Ora lly BID for 90 days Active Vascepa 2 GM 2 cap orally twice daily with meals for 30 days Active Farxiga 10 MG 1 tablet Orally Once a day for 30 Active PROCEDURES No Information RESULTS Component Value Reference Range Comprehensive Metabolic Profile (CMP) Reviewed date:10/29/2020 12:59:46 Interpretation:Transaminitis(130/173) Performing Lab:[facility] [address] [address] , ,[place] [address] GLUCOSE, FASTING 98 70-100 BLOOD UREA NITROGEN 12 7-18 CREATININE FOR GFR 0.94 0.70-1.30 GLOMERULAR FILTRATION RATE > 60.0 >60 SODIUM LEVEL 138 136-145 POTASSIUM SERUM 4.3 3.5-5.1 CHLORIDE LEVEL 108 98-107 CARBON DIOXIDE LEVEL 27 21-32 CALCIUM LEVEL 9.1 8.5-10.1 AST/SGOT 130 7-37 ALT/SGPT 173 12-78 ALKALINE PHOSPHATASE 72 45-117 BILIRUBIN,TOTAL 0.7 0.2-1.0 TOTAL PROTEIN 7.4 6.4-8.2 ALBUMIN 3.9 3.2-5.2 ALBUMIN/GLOBULIN RATIO 1.1 FERRITIN Reviewed date:10/29/2020 12:59:54 Interpretation: Performing Lab:[facility] [address] [address] , ,[place] [address] FERRITIN 985 26-388 FREE T4 Reviewed date:10/29/2020 13:00:25 Interpretation: Performing Lab:[facility] [address] [address] , ,[place] [address] FREE T4 1.00 0.76-1.46 IMMUNOGLOBULIN G Reviewed date:10/29/2020 13:00:11 Interpretation: Performing Lab:[facility] [address] [place] [address] , ,[place] [address] IMMUNOGLOBULIN G [phone] LIPID PANEL (CARDIAC RISK) Reviewed date:10/29/2020 12:54:45 Interpretation:TG 105 Performing Lab:[facility] [address] [place] [address] , ,[place] [address] TRIGLYCERIDES LEVEL 105 <150 CHOLESTEROL LEVEL 124 <200 HDL CHOLESTEROL 35 >40 LDL CHOLESTEROL 68 <100 NON-HDL-C 89 CHOLESTEROL RISK RATIO 3.542 <5 TOTAL IRON BINDING CAPACIT Reviewed date:10/29/2020 13:00:04 Interpretation: Performing Lab:[facility] [address] [address] , ,[place] [address] IRON (FE) 78 65-175 TOTAL IRON BINDING CAPACITY 450 250-450 PERCENT SATURATION 17.3 19.7-50.0 TSH Reviewed date:10/29/2020 13:00:19 Interpretation: Performing Lab:[facility] [address] [address] , ,[place] [address] THYROID STIMULATING HORMONE 1.960 0.358-3.740 ALONDRA-65 AUTOANTIBODY Reviewed date:11/08/2020 19:12:56 Interpretation: Performing Lab:[facility] [address] [address] , ,[place] [address] ALONDRA-65 AUTOANTIBODY <5.0 0.0-5.0 INSULIN LEVEL Reviewed date:11/08/2020 19:12:33 Interpretation: Performing Lab:[facility], [facility] [address] [place] [address] , ,[place] [address] INSULIN LEVEL 28.6 2.6-24.9 INSULIN ANTIBODY Reviewed date:11/08/2020 19:12:51 Interpretation: Performing Lab:[facility] [address] [place] [address] , ,[place] [address] INSULIN ANTIBODY <5.0 . Islet Cell Antibodies Reviewed date:11/08/2020 19:13:34 Interpretation:negative Performing Lab:[facility] [address] [place] [address] , ,[place] [address] ISLET CELL ANTIBODIES Negative Neg:<1:1 IgG SUBCLASS 4 Reviewed date:11/08/2020 19:13:01 Interpretation: Performing Lab:[facility] [address] [place] [address] , ,[place] [address] IgG SUBCLASS 4(ONLY) 20 2-96 ZNT8 Antibodies Reviewed date:11/08/2020 19:12:46 Interpretation: Performing Lab:[facility] [address] [place] [address] , ,[place] [address] ZNT8 ABS <15 . REASON FOR VISIT 1 month follow up f/u labs, eye (okayed by [email or web address]) MEDICAL (GENERAL) HISTORY Type Description Date Medical History Cigarette dependence Medical History HTN, goal 140/90 Medical History Obesity Medical History History of pancreatitis Medical History Coronary artery disease invo lving [place] coronary artery of [place] heart with unstable angina pectoris Surgical History Denies surgery Hospitalization History Denies Goals Section No Information Health Concerns No Information MEDICAL EQUIPMENT No Information MENTAL STATUS No Information FUNCTIONAL STATUS No Information ASSESSMENTS Encounter Date Diagnosis Assessment Notes Treatment Notes Treatm ent Clinical Notes Oct, Hypertriglyceridemia (ICD-10 - E78.1) On review of his chart the patient has type IV hypercholesterolemia which typically presents with a elevated triglyceride level. At this point he is essentially on maximal therapy for this and the only explanation left is that it is a result of his diet that his triglyceride levels are so high. On review of the literature it does appear that these medications do not work as well with triglyceride levels above 1000. I spoken with and advised the patient to eat no fatty foods for 1 week and be 100% compliant with this dietary regimen and recheck his lab work next Sunday to evaluate if his diet is the cause. Patient verbalized understanding and agreement with plan moving forward. 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 We will do more extensive work-up to see what type of diabetes he has. IgG4 antibodies specific for autoimmune pancreatitis as well as DELIO Increased IgA, decreased IgM and IgG levels are associated with type 2 diabetes Insulin antibodies, alondra 65 antibodies, his lead cell antibodies, and ZMT 8 antibodies are more associated with type I We will also order a ferritin and TIBC level to assess for hereditary hemochromatosis Finally we will get a TSH and free T4 as insulin resistance is associated with hyperthyroidism due to blocking of peripheral T4-T3 conversion. Oct, Nicotine use disorder (ICD-10 - F17.200) Uninterested in quitting at this time. Patient verbalized understanding and agreement with plan moving forward. Oct, Blepharitis of left upper ey elid, unspecified type (ICD-10 - H01.004) Resolved Oct, Other Resolved. BP is well controlled today continue with current therapy. Patient in agreement with plan moving forward. PLAN OF TREATMENT Medication Medication Name Sig Start Date Stop Date Lisinopril-hydroCHLOROthiazide 20-25 MG 1 tablet Orally Once a d ay metFORMIN HCl ER 500 MG 2 tablets in am, 2 tablets in pm Ora lly BID for 90 days Vascepa 2 GM 2 cap orally twice daily with meals for 30 days Atorvastatin Calcium 80 MG 1 tablet Orally Once a day for 90 day s Fenofibrate Micronized 200 MG take one capsule by mout h every day with a meal Orally Once a day for 30 days Farxiga 10 MG 1 tablet Orally Once a day for 30 day(s) Treatment Notes Assessment Notes Clinical Notes Hypertriglyceridemia On review of his ch art the patient has type IV hypercholesterolemia which typically presents with a elevated triglyceride level. At this point he is essentially on maximal therapy for this and the only explanation left is that it is a result of his diet that his triglyceride levels are so high. On review of the literature it does appear that these medications do not work as well with triglyceride levels above 1000. I spoken with and advised the patient to eat no fatty foods for 1 week and be 100% compliant with this dietary regimen and recheck his lab work next Sunday to evaluate if his diet is the cause. Patient verbalized understanding and agreement with plan moving forward. 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 We will do more extensive work-up to see what type of diabetes he has.IgG4 antibodies specific for autoimmune pancreatitis as well as LADAIncreased IgA, decreased IgM and IgG levels are associated with type 2 diabetesInsulin antibodies, alondra 65 antibodies, his lead cell antibodies, and ZMT 8 antibodies are more associated with type IWe will also order a ferritin and TIBC level to assess for hereditary hemochromatosisFinally we will get a TSH and free T4 as insulin resistance is associated with hyperthyroidism due to blocking of peripheral T4-T3 conversion. Nicotine use disorder Uninterested in qu itting at this time. Patient verbalized understanding and agreement with plan moving forward. Blepharitis of left upper eyelid, unspecified type Resolved Treatment Notes Test Name Order Date FREE T4 & TSH PANEL 2020-10-19 Next Appt Details 3 Months Reason:f/u TG, DM Follow Up:3 Monthsf/u TG, DM Insurance Providers Payer Name Payer Address Payer Phone Insured Name Patient Relati onship to Insured Coverage Start Date Coverage End Date [facility] [address] [facility] [phone] ANGELA BONILLA self
--- OUTSIDE RECORDS SUMMARY | 2021-01-17 07:47 | CCD ---
Author Author [facility] Organization [facility] Address Unknown Phone Unavailable Care Team Providers Care Portfolio Manager Name Role Phone Fawad Etienne Unavailable PROBLEMS Type Condition ICD9-CM Code EHU34-AC Code Onset Dates Condition S tatus W/U Status Risk SNOMED Code Notes Problem Obesity (BMI 30-39.9) E66.9 Active confirmed 402104293 Problem Status post insertion of lyle g-eluting stent into left anterior descending (LAD) artery Z95.5 Active confirmed 906631 27635726 Problem Coronary artery disease invo lving [place] coronary artery of [place] heart with unstable angina pectoris I25.110 Active confirmed 720830270 Problem Cigarette nicotine dependence without complication F17.210 Active confirmed 28801810 Problem Hypertension, unspecified type I10 Active confir med 47248126 Problem Acanthosis nigricans L83 Active confirmed 794250603 Problem Hypertriglyceridemia E78.1 Active confirmed 353397784 Problem Obstructive sleep apnea G47.33 Active confirmed 76053521 Problem Type 2 diabetes mellitus wit h other specified complication, without long-term current use of insulin E11.69 Active confirmed 00377967 Problem Indigestion K30 Active confirmed 80598483 9 Problem Nicotine use disorder F17.200 Active confirmed 92828970 Problem Daytime somnolence R40.0 Active confirmed 1 16201483861 Problem Symptomatic cholelithiasis K80.20 Active confirmed 320433109 Problem Hypercholesteremia E78.00 Active confirmed 1 6976796 Problem New onset type 2 diabetes mellitus E11.9 Activ e confirmed 69564372 Problem Gastroesophageal reflux disease without esophagitis K21.9 Active confirmed 254806822 ALLERGIES No Known Allergies ENCOUNTERS from 1984 to 2020-11-29 Encounter Location Date Provider Diagnosis [facility] Resident [address] [phone] [place] [address] Sep, Fawad Barksteffanie Blepharitis of left upper eyelid, unspecified type H01.004 ; Hypertriglyceridemia E78.1 ; Type 2 diabetes mellitus with other specified complication, without long-term current use of insulin E11.69 ; Hy pertension, unspecified type I10 and Itch of skin L29.9 IMMUNIZATIONS No Information SOCIAL HISTORY Tobacco Use: Social History Observation Description Date Details (start date - stop date) Current Smoker Sex Assigned At : Social History Observation Description Sex Assigned At Unknown Education: Question Answer Notes Level of Education: High School Audit Question Answer Notes Total Score: 0 Interpretation: Alcohol Education Language: Question Answer Notes Languages spoken: Yakut Quaker: Question Answer Notes Quaker No adventist beliefs that would impact health care. Sexual [...] FOR REFERRAL No Information VITAL SIGNS Weight 227.6 lbs Sep, Height 67 in Sep, BMI 35.64 kg/m2 Sep, Heart Rate 98 /min Sep, Respiratory Rate 18 /min Sep, Temperature 98.1 degrees Fahrenheit Sep, Oximetry 99 Sep, Blood pressure systolic 142 mm Hg 16 [place], 2021 Blood pressure diastolic 88 mm Hg Sep, MEDICATIONS Medication SIG (Take, Route, Frequency, Duration) Notes Start Da te End Date Status Lisinopril-hydroCHLOROthiazide 20-25 MG 1 tablet Orally Once a day Active metFORMIN HCl ER 500 MG TAKE FOUR TABLETS BY MOUTH E VERY DAY WITH EVENING MEAL for 90 Active Farxiga 10 MG 1 tablet Orally Once a day for 30 Active Fenofibrate Micronized 200 MG take one capsule by mout h every day with a meal Orally Once a day for 30 days Ac tive Atorvastatin Calcium 80 MG TAKE ONE TABLET BY MOUTH EVERY DAY for 90 Active Vascepa 2 GM 2 cap orally twice daily with meals for 30 days Active metFORMIN HCl ER 500 MG 2 tablets in am, 2 tablets in pm Ora lly BID for 90 days Active Farxiga 10 MG 1 tablet Orally Once a day for 30 day(s) Active Omeprazole 40 MG 1 capsule 30 minutes before morning meal Orally Daily for 90 days Active PROCEDURES No Information RESULTS Component Value Reference Range HEMOGLOBIN A1c Reviewed date:10/11/2020 16:09:27 Interpretation:7.7 Performing Lab:[facility] [address] [address] , ,[place] [address] HEMOGLOBIN A1c 7.7 ESTIMATED AVERAGE GLUCOSE 174 60-110 LIPID PANEL (CARDIAC RISK) Reviewed date:10/11/2020 16:09:34 Interpretation: Performing Lab:[facility], [facility] [address] [address] , ,[place] [address] TRIGLYCERIDES LEVEL 2122 <150 CHOLESTEROL LEVEL 224 <200 HDL CHOLESTEROL 24 >40 NON-HDL-C 200 CHOLESTEROL RISK RATIO 9.333 <5 REASON FOR VISIT follow up MEDICAL (GENERAL) HISTORY Type Description Date Medical History Cigarette dependence Medical History HTN, goal 140/90 Medical History Obesity Medical History History of pancreatitis Medical History Coronary artery disease invo lving [place] coronary artery of [place] heart with unstable angina pectoris Surgical History Denies surgery Hospitalization History Denies Goals Section No Information Health Concerns No Information MEDICAL EQUIPMENT No Information MENTAL STATUS No Information FUNCTIONAL STATUS No Information ASSESSMENTS Encounter Date Diagnosis Assessment Notes Treatment Notes Treatm ent Clinical Notes Sep, Blepharitis of left upper ey elid, unspecified type (ICD-10 - H01.004) Consistent with blepharitis of left eye, will prescribe erythromycin eye drops. Gave anticipatory guidance regarding ER referral. Patient in agreement with plan moving forward. Sep, Hypertriglyceridemia (ICD-10 - E78.1) Patient tolerating medications adequately I have given him a lab slip for lipid panel to be done prior to his next visit. He denies any side effects of medications including myalgias or dark Coca-[employer]a colored urine he is still aware of anticipatory guidance regarding when to go to the emergency department. Patient in agreement with plan moving forward. Sep, Type 2 diabetes mellitus wit h other specified complication, without long-term current use of insulin (ICD-10 - E11.69) Patient tolerating fraxiga adequately, will recheck A1C at this time before making any changes, may consider increasing farxiga if able to do so. Because of his pancreatitis history I dont think starting a GLP-1 agonist would be appropriate, will likely need to consider insulin therapy at his next appointment to get diabetes and by translation elevated triglyceride levels under better control. Patient in agreement with plan moving forward. Sep, Hypertension, unspecified type (ICD-10 - I10) BP is well controlled today continue with current therapy. Patient in agreement with plan moving forward. Sep, Itch of skin (ICD-10 - L29.9) Advised eucerin, aquafor and follow up if it worsens, keep feet dry. May consider antifungals if no improvement, will recheck this at next visit. Patient verbalized understanding and agreement with plan moving forward. Sep, Other Will have patie nt see Dr. Bose at his procedure clinic for the skin tags in his axilla and especially on the left side of his neck. No contraindications to refill or evidence of adverse effects, ok to refill. PLAN OF TREATMENT Medication Medication Name Sig Start Date Stop Date Lisinopril-hydroCHLOROthiazide 20-25 MG 1 tablet Orally Once a d ay metFORMIN HCl ER 500 MG 2 tablets in am, 2 tablets in pm Ora lly BID for 90 days Farxiga 10 MG 1 tablet Orally Once a day for 30 day(s) Vascepa 2 GM 2 cap orally twice daily with meals for 30 days Atorvastatin Calcium 80 MG TAKE ONE TABLET BY MOUTH EVERY DAY fo r 90 Fenofibrate Micronized 200 MG take one capsule by mout h every day with a meal Orally Once a day for 30 days Treatment Notes Assessment Notes Clinical Notes Blepharitis of left upper eyelid, unspecified type Consistent with blepharitis of left eye, will prescribe erythromycin eye drops. Gave anticipatory guidance regarding ER referral. Patient in agreement with plan moving forward. Hypertriglyceridemia Patient tolerating medications adequately I have given him a lab slip for lipid panel to be done prior to his next visit. He denies any side effects of medications including myalgias or dark Coca-Cola colored urine he is still aware of anticipatory guidance regarding when to go to the emergency department. Patient in agreement with plan moving forward. Type 2 diabetes mellitus with other spec ified complication, without long-term current use of insulin Patient tolerating fraxiga a dequately, will recheck A1C at this time before making any changes, may consider increasing farxiga if able to do so. Because of his pancreatitis history I dont think starting a GLP-1 agonist would be appropriate, will likely need to consider insulin therapy at his next appointment to get diabetes and by translation elevated triglyceride levels under better control. Patient in agreement with plan moving forward. Hypertension, unspecified type BP is wel l controlled today continue with current therapy. Patient in agreement with plan moving forward. Itch of skin Advised eucerin, aqu afor and follow up if it worsens, keep feet dry. May consider antifungals if no improvement, will recheck this at next visit. Patient verbalized understanding and agreement with plan moving forward. Next Appt Details 4 Weeks Reason:f/u labs, eye Follow Up:4 Weeksf/u labs, eye Insurance Providers Payer Name Payer Address Payer Phone Insured Name Patient Relati onship to Insured Coverage Start Date Coverage End Date [facility] [address] [facility] [phone] ANGELA BONILLA self
--- OUTSIDE RECORDS SUMMARY | 2021-01-17 07:47 | CCD ---
Author Author [facility] Organization [facility] Address Unknown Phone Unavailable Care Team Providers Care Siderographer Name Role Phone Fawad Etienne Unavailable PROBLEMS Type Condition ICD9-CM Code [id number] Code Onset Dates Condition S tatus W/U Status Risk SNOMED Code Notes Problem Obesity (BMI 30-39.9) E66.9 Active confirmed 806083604 Problem Status post insertion of lyle g-eluting stent into left anterior descending (LAD) artery Z95.5 Active confirmed 421237 [id number] Problem Coronary artery disease invo lving [place] coronary artery of [place] heart with unstable angina pectoris I25.110 Active confirmed 696718263 Problem Cigarette nicotine dependence without complication F17.210 Active confirmed 80731638 Problem Hypertension, unspecified type I10 Active confir med 09046940 Problem Acanthosis nigricans L83 Active confirmed 526477115 Problem Hypertriglyceridemia E78.1 Active confirmed 473933916 Problem Obstructive sleep apnea G47.33 Active confirmed 84258193 Problem Type 2 diabetes mellitus wit h other specified complication, without long-term current use of insulin E11.69 Active confirmed 19063678 Problem Indigestion K30 Active confirmed 03710609 9 Problem Nicotine use disorder F17.200 Active confirmed 73700243 Problem Daytime somnolence R40.0 Active confirmed 1 92188680663 Problem Symptomatic cholelithiasis K80.20 Active confirmed 963553417 Problem Hypercholesteremia E78.00 Active confirmed 1 0676760 Problem New onset type 2 diabetes mellitus E11.9 Activ e confirmed 17500155 Problem Gastroesophageal reflux disease without esophagitis K21.9 Active confirmed 320899566 ALLERGIES No Known Allergies ENCOUNTERS from 1984 to 2020-11-04 Encounter Location Date Provider Diagnosis [id number] [place] [address] Nov, Fawad Etienne Hypertriglyceridemia E78.1 IMMUNIZATIONS No Information SOCIAL HISTORY Tobacco Use: Social History Observation Description Date Details (start date - stop date) Current Smoker Sex Assigned At : Social History Observation Description Sex Assigned At Unknown Education: Question Answer Notes Level of Education: High School Audit Question Answer Notes Total Score: 0 Interpretation: Alcohol Education Language: Question Answer Notes Languages spoken: Somali Congregational: Question Answer Notes Congregational No faith beliefs that would impact health care. Sexual [...] REASON FOR REFERRAL No Information VITAL SIGNS No information MEDICATIONS Medication SIG (Take, Route, Frequency, Duration) Notes Start Da te End Date Status Lisinopril-hydroCHLOROthiazide 20-25 MG 1 tablet Orally Once a day Active Fenofibrate Micronized 200 MG take one capsule by mout h every day with a meal Orally Once a day for 30 days Ac tive Atorvastatin Calcium 80 MG 1 tablet Orally Once a day for 90 days Active Farxiga 10 MG 1 tablet Orally Once a day for 30 Active metFORMIN HCl ER 500 MG TAKE FOUR TABLETS BY MOUTH E VERY DAY WITH EVENING MEAL for 90 Active Farxiga 10 MG 1 tablet Orally Once a day for 30 day(s) Active metFORMIN HCl ER 500 MG 2 tablets in am, 2 tablets in pm Ora lly BID for 90 days Active Vascepa 2 GM 2 cap orally twice daily with meals for 30 days Active Omeprazole 40 MG 1 capsule 30 minutes before morning meal Orally Daily for 90 days Active PROCEDURES No Information RESULTS No Results REASON FOR VISIT hyperTG and transaminases MEDICAL (GENERAL) HISTORY Type Description Date Medical History Cigarette dependence Medical History HTN, goal 140/90 Medical History Obesity Medical History History of pancreatitis Medical History Coronary artery disease invo lving [place] coronary artery of [place] heart with unstable angina pectoris Surgical History Denies surgery Hospitalization History Denies Goals Section No Information Health Concerns No Information MEDICAL EQUIPMENT No Information MENTAL STATUS No Information FUNCTIONAL STATUS No Information ASSESSMENTS Encounter Date Diagnosis Assessment Notes Treatment Notes Treatm ent Clinical Notes Nov, Hypertriglyceridemia (ICD-10 - E78.1) PLAN OF TREATMENT Medication Medication Name Sig Start Date Stop Date Lisinopril-hydroCHLOROthiazide 20-25 MG 1 tablet Orally Once a d ay metFORMIN HCl ER 500 MG 2 tablets in am, 2 tablets in pm Ora lly BID for 90 days Vascepa 2 GM 2 cap orally twice daily with meals for 30 days Farxiga 10 MG 1 tablet Orally Once a day for 30 day(s) Fenofibrate Micronized 200 MG take one capsule by mout h every day with a meal Orally Once a day for 30 days Atorvastatin Calcium 80 MG 1 tablet Orally Once a day for 90 day s Treatment Notes Test Name Order Date LIVER PROFILE 2020-11-04 Insurance Providers Payer Name Payer Address Payer Phone Insured Name Patient Relati onship to Insured Coverage Start Date Coverage End Date [facility] [employer] [facility] [address] [facility] [id number] ANGELA BONILLA self
--- OUTSIDE RECORDS SUMMARY | 2021-01-17 07:48 | CCD ---
Author Author [facility] Organization [facility] Address Unknown Phone Unavailable Support Name Relationship Address Phone [facility] [place] [address] [id number]* Next Of Kin [address] [place] [address] Daria LAWRENCE-Malika DOBBS Next Of Kin [address] [place] [phone] ROSSANA ROSS Next Of Kin [address] [place] [address] [employer] [place] [address] ROSSANA STEWART Next Of Kin [address] [place] [address] [place] [address] [phone] Re-disclosure Warning The records that you are about to access may contain information from federally-assisted alcohol or drug abuse programs. If such information is present, then the following federally mandated warning applies: This information has been disclosed to you from records protected by federal confidentiality rules (42 CFR part 2). The federal rules prohibit you from making any further disclosure of this information unless further disclosure is expressly permitted by the written consent of the person to whom it pertains or as otherwise permitted by 42 CFR part 2. A general authorization for the release of medical or other information is NOT sufficient for this purpose. The Federal rules restrict any use of the information to criminally investigate or prosecute any alcohol or drug abuse patient.The records that you are about to access may contain highly sensitive health information, the redisclosure of which is protected by Article 27-F of the [place] State Public Health law. If you continue you may have access to information: Regarding HIV / AIDS; Provided by facilities licensed or operated by the [facility] Office of Mental Health; or Provided by the [facility] Office for People With Developmental Disabilities. If such information is present, then the following [facility] mandated warning applies: This information has been disclosed to you from confidential records which are protected by state law. State law prohibits you from making any further disclosure of this information without the specific written consent of the person to whom it pertains, or as otherwise permitted by law. Any unauthorized further disclosure in violation of state law may result in a fine or residential sentence or both. A general authorization for the release of medical or other information is NOT sufficient authorization for further disc losure. Encounters Encounter Providers Location Date Indications Data Source(s ) Unknown [address] [facility] [place] [address] 11/04/2020 12:00:00 AM EDT eCW1 ([facility]) Outpatient [address] [facility] [place] [address] 10/19/2020 12:00:00 AM EDT eCW1 ([facility]) Unknown [address] [facility] [place] [address] 09/24/2020 12:00:00 AM EDT eCW1 ([facility]) Outpatient [address] [facility] [place] [address] 09/17/2020 12:00:00 AM EDT eCW1 ([facility]) Outpatient [address] [facility] [place] [address] 08/05/2020 12:00:00 AM EDT eCW1 ([facility] Outpatient [address] [facility] [place] [address] 07/22/2020 12:00:00 AM EDT eCW1 ([facility]) Unknown [address] [facility] [place] [address] 07/12/2020 12:00:00 AM EDT eCW1 ([facility]) Unknown [address] [facility] [place] [address] 07/12/2020 12:00:00 AM EDT eCW1 ([facility]) [place] [address] [facility] [place] [address] 07/09/2020 12:00:00 AM EDT eCW1 ([facility]) Unknown [address] [facility] [place] [address] 07/09/2020 12:00:00 AM EDT eCW1 ([facility]) Unknown [address] [facility] [place] [address] 07/09/2020 12:00:00 AM EDT eCW1 ([facility]) Unknown [address] [facility] [place] [address] 07/09/2020 12:00:00 AM EDT eCW1 ([facility]) Out[place] [address] [facility] [place] [address] 07/08/2020 12:00:00 AM EDT eCW1 ([facility]) Unknown [address] [facility] [place] [address] 05/03/2020 12:00:00 AM EST eCW1 ([facility]) Unknown [address] [facility] [place] [address] 04/28/2020 12:00:00 AM EST eCW1 ([facility]) Outpatient [address] [facility] [place] [address] 04/27/2020 12:00:00 AM EST eCW1 ([facility]) Unknown [address] [facility] [place] [address] 03/08/2020 12:00:00 AM EST eCW1 ([facility]) Outpatient [address] [facility] [place] [address] 02/13/2020 12:00:00 AM EST eCW1 ([facility]) Outpatient [address] [facility] [place] [address] 12/24/2019 12:00:00 AM EDT eCW1 ([facility]) Unknown [address] [facility] [place] [address] 12/09/2019 12:00:00 AM EDT eCW1 ([facility]) Immunizations Vaccine Date Status Description Data Source(s) COVID-19 VACC,MRNA(MODERNA)/PF 07/12/2020 12:00:00 AM EDT completed [facility] COVID-19 VACCINE Moderna 07/12/2020 12:00:00 AM EDT completed [facility] Vaccine Series Complete: YESThis Data wa s Submitted to [facility] Via [facility]. COVID-19 VACCINE Moderna 06/15/2020 12:00:00 AM EDT completed [facility] Vaccine Series Complete: NOThis Data was Submitted to [facility] Via [employer]. COVID-19 VACCINE, MRNA-1273, LNP-S (MODERNA)/PF 06/15/2020 1 2:00:00 AM EDT completed [facility] Medications Medication Brand Name Start Date Product Form Dose Route Admi nistrative Instructions Pharmacy Instructions Status Indications Reaction Description Data Source(s) 40 mg 01/05/2021 12:00:00 AM EDT capsule,delayed release (DR/EC) 90 TAKE ONE CAPSULE BY MOUTH EVERY DAY 30 MINUTES BEFORE MORNING MEAL TAKE ONE CAPSULE BY MOUTH EVERY DAY 30 MINUTES BEFORE MORNING MEAL SOLD: 01/08/2021 [facility] Fenofibrate 134 MG Oral Capsule FENOFIBRATE,MICRONIZED 12/31 12:00:00 AM EDT capsule 30 TAKE ONE CAPSULE BY MOUTH EV HALIE DAY WITH A MEAL TAKE ONE CAPSULE BY MOUTH EVERY DAY WITH A MEAL SOLD: 01/02/2021 [facility] 80 mg 11/20/2020 12:00:00 AM EDT tablet 90 TAKE ONE TABLET BY MOUTH EVERY DAY TAKE ONE TABLET BY MOUTH EVERY DAY SOLD: 11/21/2020 [facility] 10 mg 10/20/2020 12:00:00 AM EDT tablet 30 TAKE ONE TABLET BY MOUTH EVERY DAY TAKE ONE TABLET BY MOUTH EVERY DAY SOLD: 10/20/2020 [facility] 24 HR Metformin hydrochloride 500 MG Extended Release Oral T ablet METFORMIN HCL 10/13/2020 12:00:00 AM EDT tablet extended release 24 hr 360 TAKE FOUR TABLETS BY MOUTH EVERY EVENING WITH MEAL TAKE FOUR TABLETS BY MOUTH EVERY EVENING WITH MEAL SOLD: 01/15/2021 [facility] 24 HR Metformin hydrochloride 500 MG Extended Release Oral T ablet METFORMIN HCL 10/13/2020 12:00:00 AM EDT tablet extended release 24 hr 360 TAKE FOUR TABLETS BY MOUTH EVERY EVENING WITH MEAL TAKE FOUR TABLETS BY MOUTH EVERY EVENING WITH MEAL SOLD: 10/15/2020 [facility] Fenofibrate 134 MG Oral Capsule FENOFIBRATE,MICRONIZED 10/09 12:00:00 AM EDT capsule 30 TAKE ONE CAPSULE BY MOUTH EV HALIE DAY WITH A MEAL TAKE ONE CAPSULE BY MOUTH EVERY DAY WITH A MEAL SOLD: 11/06/2020 [facility] Fenofibrate 134 MG Oral Capsule FENOFIBRATE,MICRONIZED 10/09 12:00:00 AM EDT capsule 30 TAKE ONE CAPSULE BY MOUTH EV HALIE DAY WITH A MEAL TAKE ONE CAPSULE BY MOUTH EVERY DAY WITH A MEAL SOLD: 12/04/2020 [facility] Fenofibrate 134 MG Oral Capsule FENOFIBRATE,MICRONIZED 10/09 12:00:00 AM EDT capsule 30 TAKE ONE CAPSULE BY MOUTH EV HALIE DAY WITH A MEAL TAKE ONE CAPSULE BY MOUTH EVERY DAY WITH A MEAL SOLD: 10/10/2020 [facility] 10 mg 09/25/2020 12:00:00 AM EDT tablet 30 TAKE ONE TABLET BY MOUTH EVERY DAY TAKE ONE TABLET BY MOUTH EVERY DAY SOLD: 12/19/2020 [facility] 10 mg 09/25/2020 12:00:00 AM EDT tablet 30 TAKE ONE TABLET BY MOUTH EVERY DAY TAKE ONE TABLET BY MOUTH EVERY DAY SOLD: 09/26/2020 [facility] 10 mg 09/25/2020 12:00:00 AM EDT tablet 30 TAKE ONE TABLET BY MOUTH EVERY DAY TAKE ONE TABLET BY MOUTH EVERY DAY SOLD: 11/16/2020 [facility] Erythromycin 0.005 MG/MG Ophthalmic Ointment Erythromy rachel 5 MG/GM Erythromycin 5 MG/GM 09/17/2020 12:00:00 AM EDT active Erythromycin 5 MG/GM eCW1 ([facility]) 5 mg/gram (0.5 %) 09/17/2020 12:00:00 AM EDT ointment 3 APPLY ONE APPLICATION TO THE LOWER EYELID OF THE AFFECTED EYE FOUR TIMES A DAY FOR 10 DAYS APPLY ONE APPLICATION TO THE LOWER EYELI D OF THE AFFECTED EYE FOUR TIMES A DAY FOR 10 DAYS SOLD: 09/17/2020 [facility] 20-25 mg 09/13/2020 12:00:00 AM EDT tablet 90 TAKE ONE TABLET BY MOUTH EVERY DAY TAKE ONE TABLET BY MOUTH EVERY DAY SOLD: 09/13/2020 [facility] 10 mg 08/16/2020 12:00:00 AM EDT tablet 30 TAKE ONE TABLET BY MOUTH EVERY DAY TAKE ONE TABLET BY MOUTH EVERY DAY SOLD: 08/17/2020 [facility] Fenofibrate 134 MG Oral Capsule FENOFIBRATE,MICRONIZED 07/13 12:00:00 AM EDT capsule 30 TAKE ONE CAPSULE BY MOUTH EV HALIE DAY WITH A MEAL TAKE ONE CAPSULE BY MOUTH EVERY DAY WITH A MEAL SOLD: 09/11/2020 [facility] Fenofibrate 134 MG Oral Capsule FENOFIBRATE,MICRONIZED 07/13 12:00:00 AM EDT capsule 30 TAKE ONE CAPSULE BY MOUTH EV HALIE DAY WITH A MEAL TAKE ONE CAPSULE BY MOUTH EVERY DAY WITH A MEAL SOLD: 07/13/2020 [facility] Fenofibrate 134 MG Oral Capsule FENOFIBRATE,MICRONIZED 07/13 12:00:00 AM EDT capsule 30 TAKE ONE CAPSULE BY MOUTH EV HALIE DAY WITH A MEAL TAKE ONE CAPSULE BY MOUTH EVERY DAY WITH A MEAL SOLD: 08/14/2020 [facility] Fenofibrate 134 MG Oral Capsule Fenofibrate Micronized 134 MG Fenofibrate Micronized 134 MG 07/12/2020 12:00:00 AM EDT 1.0 {capsule_with_a_meal} active Fenofibrate Micronized 134 MG eC W1 ([facility]) Fenofibrate 134 MG Oral Capsule Fenofibrate Micronized 134 MG Fenofibrate Micronized 134 MG 07/12/2020 12:00:00 AM EDT 1.0 {capsule_with_a_meal} active Fenofibrate Micronized 134 MG eC W1 ([facility]) Fenofibrate 134 MG Oral Capsule Fenofibrate Micronized 134 MG Fenofibrate Micronized 134 MG 07/12/2020 12:00:00 AM EDT 1.0 {capsule_with_a_meal} active Fenofibrate Micronized 134 MG eC W1 ([facility]) Fenofibrate 134 MG Oral Capsule Fenofibrate Micronized 134 MG Fenofibrate Micronized 134 MG 07/12/2020 12:00:00 AM EDT 1.0 {capsule_with_a_meal} active Fenofibrate Micronized 134 MG eC W1 ([facility]) Fenofibrate 134 MG Oral Capsule Fenofibrate Micronized 134 MG Fenofibrate Micronized 134 MG 07/12/2020 12:00:00 AM EDT 1.0 {capsule_with_a_meal} active Fenofibrate Micronized 134 MG eC W1 ([facility]) Fenofibrate 134 MG Oral Capsule Fenofibrate Micronized 134 MG Fenofibrate Micronized 134 MG 07/12/2020 12:00:00 AM EDT 1.0 {capsule_with_a_meal} active Fenofibrate Micronized 134 MG eC W1 ([facility]) Fenofibrate 134 MG Oral Capsule Fenofibrate Micronized 134 MG Fenofibrate Micronized 134 MG 07/12/2020 12:00:00 AM EDT 1.0 {capsule_with_a_meal} active Fenofibrate Micronized 134 MG eC W1 ([facility]) Fenofibrate 134 MG Oral Capsule Fenofibrate Micronized 134 MG Fenofibrate Micronized 134 MG 07/12/2020 12:00:00 AM EDT 1.0 {capsule_with_a_meal} active Fenofibrate Micronized 134 MG eC W1 ([facility]) 40 mg 07/09/2020 12:00:00 AM EDT capsule,delayed release (DR/EC) 90 TAKE ONE CAPSULE BY MOUTH EVERY DAY 30 MINUTES BEFORE MORNING MEAL TAKE ONE CAPSULE BY MOUTH EVERY DAY 30 MINUTES BEFORE MORNING MEAL SOLD: 07/12/2020 [facility] 40 mg 07/09/2020 12:00:00 AM EDT capsule,delayed release (DR/EC) 90 TAKE ONE CAPSULE BY MOUTH EVERY DAY 30 MINUTES BEFORE MORNING MEAL TAKE ONE CAPSULE BY MOUTH EVERY DAY 30 MINUTES BEFORE MORNING MEAL SOLD: 10/10/2020 [facility] Fenofibrate 40 MG Oral Tablet [Fenoglide] Fenoglide 40 MG Fe noglide 40 MG 07/08/2020 12:00:00 AM EDT 1.0 {tablet_with_food} active Fenoglide 40 MG eCW1 ([facility]) Fenofibrate 40 MG Oral Tablet [Fenoglide] Fenoglide 40 MG Fe noglide 40 MG 07/08/2020 12:00:00 AM EDT 1.0 {tablet_with_food} active Fenoglide 40 MG eCW1 ([facility]) Fenofibrate 40 MG Oral Tablet [Fenoglide] Fenoglide 40 MG Fe noglide 40 MG 07/08/2020 12:00:00 AM EDT 1.0 {tablet_with_food} active Fenoglide 40 MG eCW1 ([facility]) Fenofibrate 40 MG Oral Tablet [Fenoglide] Fenoglide 40 MG Fe noglide 40 MG 07/08/2020 12:00:00 AM EDT 1.0 {tablet_with_food} active Fenoglide 40 MG eCW1 ([facility]) Fenofibrate 40 MG Oral Tablet [Fenoglide] Fenoglide 40 MG Fe noglide 40 MG 07/08/2020 12:00:00 AM EDT 1.0 {tablet_with_food} active Fenoglide 40 MG eCW1 ([facility]) Vascepa 2 GM UNK 07/08/2020 12:00:00 AM EDT activ e Vascepa 2 GM eCW1 ([facility]) Vascepa 2 GM UNK 07/08/2020 12:00:00 AM EDT activ e Vascepa 2 GM eCW1 ([facility]) Vascepa 2 GM UNK 07/08/2020 12:00:00 AM EDT activ e Vascepa 2 GM eCW1 ([facility]) Fenofibrate 40 MG Oral Tablet [Fenoglide] Fenoglide 40 MG Fe noglide 40 MG 07/08/2020 12:00:00 AM EDT 1.0 {tablet_with_food} active Fenoglide 40 MG eCW1 ([facility]) Vascepa 2 GM UNK 07/08/2020 12:00:00 AM EDT activ e Vascepa 2 GM eCW1 ([facility]) Vascepa 2 GM UNK 07/08/2020 12:00:00 AM EDT activ e Vascepa 2 GM eCW1 ([facility]) Vascepa 2 GM UNK 07/08/2020 12:00:00 AM EDT activ e Vascepa 2 GM eCW1 ([facility]) Vascepa 2 GM UNK 07/08/2020 12:00:00 AM EDT activ e Vascepa 2 GM eCW1 ([facility]) Vascepa 2 GM UNK 07/08/2020 12:00:00 AM EDT activ e Vascepa 2 GM eCW1 ([facility]) Vascepa 2 GM UNK 07/08/2020 12:00:00 AM EDT activ e Vascepa 2 GM eCW1 ([facility]) Fenofibrate 40 MG Oral Tablet [Fenoglide] Fenoglide 40 MG Fe noglide 40 MG 07/08/2020 12:00:00 AM EDT 1.0 {tablet_with_food} active Fenoglide 40 MG eCW1 ([facility]) Fenofibrate 40 MG Oral Tablet [Fenoglide] Fenoglide 40 MG Fe noglide 40 MG 07/08/2020 12:00:00 AM EDT 1.0 {tablet_with_food} active Fenoglide 40 MG eCW1 ([facility]) Fenofibrate 40 MG Oral Tablet [Fenoglide] Fenoglide 40 MG Fe noglide 40 MG 07/08/2020 12:00:00 AM EDT 1.0 {tablet_with_food} active Fenoglide 40 MG eCW1 ([facility]) 10 mg 06/01/2020 12:00:00 AM EDT tablet 30 TAKE ONE TABLET BY MOUTH EVERY DAY TAKE ONE TABLET BY MOUTH EVERY DAY SOLD: 06/04/2020 [facility] 10 mg 06/01/2020 12:00:00 AM EDT tablet 30 TAKE ONE TABLET BY MOUTH EVERY DAY TAKE ONE TABLET BY MOUTH EVERY DAY SOLD: 07/04/2020 [facility] 5 mg 04/30/2020 12:00:00 AM EST tablet 30 TAKE ONE TABLET BY MOUTH EVERY DAY TAKE ONE TABLET BY MOUTH EVERY DAY SOLD: 05/01/2020 [facility] 5 mg 04/29/2020 12:00:00 AM EST tablet 30 TAKE ONE TABLET BY MOUTH EVERY DAY TAKE ONE TABLET BY MOUTH EVERY DAY SOLD: 05/01/2020 [facility] Steglatro 5 MG Steglatro 5 MG 04/28/2020 12:00:00 AM EST 1.0 {ta blet} active Steglatro 5 MG eCW1 ([facility]) Steglatro 5 MG Steglatro 5 MG 04/28/2020 12:00:00 AM EST 1.0 {ta blet} active Steglatro 5 MG eCW1 ([facility]) Steglatro 5 MG Steglatro 5 MG 04/28/2020 12:00:00 AM EST 1.0 {ta blet} active Steglatro 5 MG eCW1 ([facility]) dapagliflozin 5 MG Oral Tablet [Farxiga] Farxiga 5 MG Farxig a 5 MG 04/27/2020 12:00:00 AM EST 1.0 {tablet} active Fa rxiga 5 MG eCW1 ([facility]) 80 mg 04/27/2020 12:00:00 AM EST tablet 30 TAKE ONE TABLET BY MOUTH EVERY DAY TAKE ONE TABLET BY MOUTH EVERY DAY SOLD: 09/26/2020 [facility] dapagliflozin 5 MG Oral Tablet [Farxiga] Farxiga 5 MG Farxig a 5 MG 04/27/2020 12:00:00 AM EST 1.0 {tablet} active Fa rxiga 5 MG eCW1 ([facility]) 80 mg 04/27/2020 12:00:00 AM EST tablet 30 TAKE ONE TABLET BY MOUTH EVERY DAY TAKE ONE TABLET BY MOUTH EVERY DAY SOLD: 06/21/2020 [facility] 80 mg 04/27/2020 12:00:00 AM EST tablet 30 TAKE ONE TABLET BY MOUTH EVERY DAY TAKE ONE TABLET BY MOUTH EVERY DAY SOLD: 08/29/2020 [facility] 80 mg 04/27/2020 12:00:00 AM EST tablet 30 TAKE ONE TABLET BY MOUTH EVERY DAY TAKE ONE TABLET BY MOUTH EVERY DAY SOLD: 10/24/2020 [facility] 80 mg 04/27/2020 12:00:00 AM EST tablet 30 TAKE ONE TABLET BY MOUTH EVERY DAY TAKE ONE TABLET BY MOUTH EVERY DAY SOLD: 04/27/2020 [facility] dapagliflozin 5 MG Oral Tablet [Farxiga] Farxiga 5 MG Farxig a 5 MG 04/27/2020 12:00:00 AM EST 1.0 {tablet} active Fa rxiga 5 MG eCW1 ([facility]) 80 mg 04/27/2020 12:00:00 AM EST tablet 30 TAKE ONE TABLET BY MOUTH EVERY DAY TAKE ONE TABLET BY MOUTH EVERY DAY SOLD: 07/31/2020 [facility] 40 mg 04/06/2020 12:00:00 AM EST capsule,delayed release (DR/EC) 90 TAKE ONE CAPSULE BY MOUTH EVERY DAY TAKE ONE CAPSULE BY MOUTH EVERY DAY SOLD: 04/08/2020 [facility] 500 mg 03/09/2020 12:00:00 AM EST tablet extended release 24 hr 360 TAKE FOUR TABLETS BY MOUTH EVERY DAY WITH EVENING MEAL TAKE FOUR TABLETS BY MOUTH EVERY DAY WITH EVENING MEAL SOLD: 07/18/2020 [facility] 20-25 mg 03/09/2020 12:00:00 AM EST tablet 30 TAKE ONE TABLET BY MOUTH EVERY DAY TAKE ONE TABLET BY MOUTH EVERY DAY SOLD: 08/14/2020 [facility] 500 mg 03/09/2020 12:00:00 AM EST tablet extended release 24 hr 360 TAKE FOUR TABLETS BY MOUTH EVERY DAY WITH EVENING MEAL TAKE FOUR TABLETS BY MOUTH EVERY DAY WITH EVENING MEAL SOLD: 03/10/2020 [facility] 20-25 mg 03/09/2020 12:00:00 AM EST tablet 30 TAKE ONE TABLET BY MOUTH EVERY DAY TAKE ONE TABLET BY MOUTH EVERY DAY SOLD: 07/12/2020 [facility] 20-25 mg 03/09/2020 12:00:00 AM EST tablet 90 TAKE ONE TABLET BY MOUTH EVERY DAY TAKE ONE TABLET BY MOUTH EVERY DAY SOLD: 03/10/2020 [facility] 20-25 mg 03/09/2020 12:00:00 AM EST tablet 30 TAKE ONE TABLET BY MOUTH EVERY DAY TAKE ONE TABLET BY MOUTH EVERY DAY SOLD: 06/12/2020 [facility] Metformin hydrochloride 1000 MG Oral Tablet 1,000 mg METFORM IN HCL 02/14/2020 12:00:00 AM EST tablet 60 TAKE ONE TABLET BY MOUTH TWICE A DAY WITH A MEAL TAKE ONE TABLET BY MOUTH TWICE A DAY WITH A MEAL SOLD: 02/21/2020 [facility] Metformin hydrochloride 1000 MG Oral Tablet Metformin HCl 1000 MG Metformin HCl 1000 MG 02/13/2020 12:00:00 AM EST 1.0 {tablet_with_a_meal} active Metformin HCl 1000 MG eCW1 ([facility]) Fenofibrate 145 MG Oral Tablet Fenofibrate 145 MG 02/13/2020 12:00: 00 AM EST 1.0 {tablet} active Fenofibrate 145 MG eCW1 ([facility]) Metformin hydrochloride 1000 MG Oral Tablet Metformin HCl 1000 MG Metformin HCl 1000 MG 02/13/2020 12:00:00 AM EST 1.0 {tablet_with_a_meal} active Metformin HCl 1000 MG eCW1 ([facility]) Fenofibrate 145 MG Oral Tablet Fenofibrate 145 MG 02/13/2020 12:00: 00 AM EST 1.0 {tablet} active Fenofibrate 145 MG eCW1 ([facility]) 500 mg 02/12/2020 12:00:00 AM EST tablet extended release 24 hr 60 TAKE ONE TABLET BY MOUTH TWICE A DAY TAKE ONE TABLET BY MOUTH TWICE A DAY SOLD: 02/12/2020 [facility] benzonatate 100 MG Oral Capsule BENZONATATE 12/18/2019 12:00:00 AM EDT capsule 21 TAKE ONE CAPSULE BY MOUTH THREE TIMES A DAY FOR COUGH TAKE ONE CAPSULE BY MOUTH THREE TIMES A DAY FOR COUGH SOLD: 12/18/2019 [facility] 50 mcg/actuation 12/09/2019 12:00:00 AM EDT spray,suspension 16 SPRAY 2 SPRAYS IN EACH NOSTRIL ONCE A DAY SPRAY 2 SPRAYS IN EACH NOSTRIL ONCE A DAY SOLD: 12/11/2019 [facility] 600 mg 12/09/2019 12:00:00 AM EDT tablet 30 TAKE ONE TABLET BY MOUTH EVERY 6 HOURS NEEDED FOR PAIN TAKE ONE TABLET BY MOUTH EVERY 6 HOURS A S NEEDED FOR PAIN SOLD: 12/11/2019 [facility] [id number] 12/09/2019 12:00:00 AM EDT Suspension 240 SWISH AND SPIT WITH 10ML FOUR TIMES A DAY NEEDED FOR MUCOSITIS SWISH AND SPIT WITH 10ML FOUR TIMES A DAY NEEDED FOR MUCOSITIS SOLD: 12/11/2019 [facility] atorvastatin 40 MG Oral Tablet ATORVASTATIN CALCIUM 11/04/2019 1 2:00:00 AM EDT tablet 90 TAKE ONE TABLET BY MOUTH EVERY D AY TAKE ONE TABLET BY MOUTH EVERY DAY SOLD: 03/12/2020 [facility] 20-25 mg 11/04/2019 12:00:00 AM EDT tablet 30 TAKE ONE TABLET BY MOUTH EVERY DAY TAKE ONE TABLET BY MOUTH EVERY DAY SOLD: 12/14/2019 [facility] 20-25 mg 11/04/2019 12:00:00 AM EDT tablet 30 TAKE ONE TABLET BY MOUTH EVERY DAY TAKE ONE TABLET BY MOUTH EVERY DAY SOLD: 01/31/2020 [facility] 40 mg 07/29/2019 12:00:00 AM EDT capsule,delayed release (DR/EC) 90 TAKE ONE CAPSULE BY MOUTH EVERY DAY TAKE ONE CAPSULE BY MOUTH EVERY DAY SOLD: 12/14/2019 [facility] Insurance Providers Payer name Policy type / Coverage type Policy ID Covered republican ID Covered republican's relationship to guthrie Policy Guthrie Plan Information [facility] [id number] SP [id number] [facility] [id number] SP [id number] [facility] O [id number] S [id number] Managed Care BCBS P [id number] S [id number] Medicaid S [id number] S [id number] ANS-Medicaid [id number] ANS-Medicaid [id number] ANS-Medicaid [id number] ANSI-Medicaid [id number] MEDICAID [id number] SP [id number] MEDICAID [id number] SP [id number] SELF PAY UNAVAILABLE SP UNAVAILA BLE Problems, Conditions, and Diagnoses Code Display Name Description Problem Type Effective Dates Data Source(s) F17.200 [id number] Nicotine use disorder Problem 10/19/2020 12: 00:00 AM EDT eCW1 ([facility]) K21.9 Gastroesophageal reflux disease without esophagitis Gastroesophageal reflux disease without esophagitis Problem 07/09/2020 12:00:00 AM ED T eCW1 ([facility]) E11.69 [id number] Type 2 diabetes clovis itus with other specified complication, without long-term current use of insulin Problem 07/09/2020 12:00:00 AM EDT eCW1 ([facility]) 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 Problem 06/16/2020 12:00: 00 AM EDT eCW1 ([facility]) Z95.5 [id number] 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 Problem 06/16/2020 12:00:00 AM EDT eCW1 ([facility]) E11.9 [id number] New onset type 2 diabetes mellitus Proble m 02/13/2020 12:00:00 AM EST eCW1 ([facility]) E78.00 [id number] Hypercholesteremia Problem 02/13/2020 12:00: 00 AM EST eCW1 ([facility]) Surgeries/Procedures Procedure Description Date Indications Data Source(s) ECG ROUTINE ECG W/LEAST 12 LDS W/I&R 04/27/2020 12:00: 00 AM EST eCW1 ([facility]) Results ID Date Data Source ZNT8 Antibodies 10/29/2020 12:00:00 AM EDT eCW1 ([facility]) Name Value Range Interpretation Code Description Data Sonya rce(s) Supporting Document(s) <15 . ZNT8 ABS eCW1 ([facility]) ID Date Data Source IgG SUBCLASS 4 10/29/2020 12:00:00 AM EDT eCW1 ([facility]) Name Value Range Interpretation Code Description Data Sonya rce(s) Supporting Document(s) 20 2-96 IgG SUBCLASS 4(ONLY) eCW1 ([facility]) ID Date Data Source Islet Cell Antibodies 10/29/2020 12:00:00 AM EDT eCW1 ([facility]) Name Value Range Interpretation Code Description Data Sonya rce(s) Supporting Document(s) Negative Neg:<1:1 ISLET CELL ANTIBODIES eCW 1 ([facility]) ID Date Data Source INSULIN ANTIBODY 10/29/2020 12:00:00 AM EDT eCW1 ([facility]) Name Value Range Interpretation Code Description Data Sonya rce(s) Supporting Document(s) <5.0 . INSULIN ANTIBODY eCW1 ([facility]) ID Date Data Source INSULIN LEVEL 10/29/2020 12:00:00 AM EDT eCW1 ([facility]) Name Value Range Interpretation Code Description Data Sonya rce(s) Supporting Document(s) 28.6 2.6-24.9 INSULIN LEVEL eCW1 ([facility]) ID Date Data Source ALONDRA-65 AUTOANTIBODY 10/29/2020 12:00:00 AM EDT eCW1 ([facility]) Name Value Range Interpretation Code Description Data Sonya rce(s) Supporting Document(s) <5.0 0.0-5.0 ALONDRA-65 AUTOANTIBODY eCW1 ([facility]) ID Date Data Source TSH 10/29/2020 12:00:00 AM EDT eCW1 ([facility]) Name Value Range Interpretation Code Description Data Sonya rce(s) Supporting Document(s) 1.960 0.358-3.740 THYROID STIMULATING HORM ONE eCW1 ([facility]) ID Date Data Source TOTAL IRON BINDING CAPACIT 10/29/2020 12:00:00 AM EDT eCW1 ( [facility]) Name Value Range Interpretation Code Description Data Sonya rce(s) Supporting Document(s) 78 65-175 IRON (FE) eCW1 ([facility]) 450 250-450 TOTAL IRON BINDING CAPACI TY eCW1 ([facility]) 17.3 19.7-50.0 PERCENT SATURATION eCW1 ([facility]) ID Date Data Source IMMUNOGLOBULIN G 10/29/2020 12:00:00 AM EDT eCW1 ([facility]) Name Value Range Interpretation Code Description Data Sonya rce(s) Supporting Document(s) [phone] IMMUNOGLOBULIN G eCW1 ([facility]) ID Date Data Source FREE T4 10/29/2020 12:00:00 AM EDT eCW1 ([facility]) Name Value Range Interpretation Code Description Data Sonya rce(s) Supporting Document(s) 1.00 0.76-1.46 FREE T4 eCW1 ([facility]) ID Date Data Source FERRITIN 10/29/2020 12:00:00 AM EDT eCW1 ([facility]) Name Value Range Interpretation Code Description Data Sonya rce(s) Supporting Document(s) 924 05-089 FERRITIN eCW1 ([facility]) ID Date Data Source Comprehensive Metabolic Profile (CMP) 10/29/2020 12:00:00 AM EDT eCW1 ([facility]) Name Value Range Interpretation Code Description Data Sonya rce(s) Supporting Document(s) 12 7-18 BLOOD UREA NITROGEN eCW1 ([facility]) 98 70-100 GLUCOSE, FASTING eCW1 ([facility]) 4.3 3.5-5.1 POTASSIUM SERUM eCW1 ([facility]) 138 136-145 SODIUM LEVEL eCW1 ([facility]) > 60.0 >60 GLOMERULAR FILTRATION RATE eCW 1 ([facility]) 0.94 0.70-1.30 CREATININE FOR GFR eCW1 ([facility]) 9.1 8.5-10.1 CALCIUM LEVEL eCW1 ([facility]) 130 7-37 AST/SGOT eCW1 ([facility]) 27 21-32 CARBON DIOXIDE LEVEL eCW1 ([facility]) 108 98-107 CHLORIDE LEVEL eCW1 ([facility]) 72 45-117 ALKALINE PHOSPHATASE eCW1 ([facility]) 0.7 0.2-1.0 BILIRUBIN,TOTAL eCW1 ([facility]) 173 12-78 ALT/SGPT eCW1 ([facility]) 7.4 6.4-8.2 TOTAL PROTEIN eCW1 ([facility]) 3.9 3.2-5.2 ALBUMIN eCW1 ([facility]) 1.1 ALBUMIN/GLOBULIN RATIO eCW1 ([facility]) ID Date Data Source LIPID PANEL (CARDIAC RISK) 10/11/2020 12:00:00 AM EDT eCW1 ( [facility]) Name Value Range Interpretation Code Description Data Sonya rce(s) Supporting Document(s) Cholesterol in LDL [Mass/volume] in Serum or Plasma by calculation 68 <100 LDL CHOLESTEROL eCW1 ([facility]) Triglyceride [Mass/volume] in Serum or Plasma by calculation 2122 <150 TRIGLYCERIDES LEVEL eCW1 ([facility]) Cholesterol in HDL [Moles/volume] in Serum or Plasma 24 >40 HDL CHOLESTEROL eCW1 ([facility]) Cholesterol [Moles/volume] in Serum or Plasma 224 <200 CHOLESTEROL LEVEL eCW1 ([facility]) 200 NON-HDL-C eCW1 ([facility]) 9.333 <5 CHOLESTEROL RISK RATIO eCW1 ([facility]) ID Date Data Source [id number] 10/11/2020 12:00:00 AM EDT eCW1 ([facility]) Name Value Range Interpretation Code Description Data Sonya rce(s) Supporting Document(s) Hemoglobin A1c/Hemoglobin.total in Blood 7.7 HEMOGLOBIN A1c eCW1 ([facility]) ID Date Data Source UA URINALYSIS 02/13/2020 12:00:00 AM EST eCW1 ([facility]) Name Value Range Interpretation Code Description Data Sonya rce(s) Supporting Document(s) UA URINALYSIS eCW1 ([facility]) Procedure Social History Code Duration Value Status Description Data Source(s ) Smoking 10/19/2020 12:00:00 AM EDT Current Smoker completed Curre nt Smoker eCW1 ([facility]) Smoking 10/19/2020 12:00:00 AM EDT Current Smoker completed Curre nt Smoker eCW1 ([facility]) Smoking 10/19/2020 12:00:00 AM EDT Current Smoker completed Curre nt Smoker eCW1 ([facility]) Smoking 09/17/2020 12:00:00 AM EDT Current Smoker completed Curre nt Smoker eCW1 ([facility]) Smoking 08/03/2020 12:00:00 AM EDT Current Smoker completed Curre nt Smoker eCW1 ([facility]) Smoking 08/03/2020 12:00:00 AM EDT Current Smoker completed Curre nt Smoker eCW1 ([facility]) Smoking 08/03/2020 12:00:00 AM EDT Current Smoker completed Curre nt Smoker eCW1 ([facility]) Smoking 07/20/2020 12:00:00 AM EDT Current Smoker completed Curre nt Smoker eCW1 ([facility]) Smoking 07/09/2020 12:00:00 AM EDT Current Smoker completed Curre nt Smoker eCW1 ([facility]) Smoking 07/09/2020 12:00:00 AM EDT Current Smoker completed Curre nt Smoker eCW1 ([facility]) Smoking 07/09/2020 12:00:00 AM EDT Current Smoker completed Curre nt Smoker eCW1 ([facility]) Smoking 07/09/2020 12:00:00 AM EDT Current Smoker completed Curre nt Smoker eCW1 ([facility]) Smoking 07/09/2020 12:00:00 AM EDT Current Smoker completed Curre nt Smoker eCW1 ([facility]) Smoking 04/27/2020 12:00:00 AM EST Current Smoker completed Curre nt Smoker eCW1 ([facility]) Smoking 04/27/2020 12:00:00 AM EST Current Smoker completed Curre nt Smoker eCW1 ([facility]) Smoking 04/27/2020 12:00:00 AM EST Current Smoker completed Curre nt Smoker eCW1 ([facility]) Smoking 02/13/2020 12:00:00 AM EST Current Smoker completed Curre nt Smoker eCW1 ([facility]) Smoking 02/13/2020 12:00:00 AM EST Current Smoker completed Curre nt Smoker eCW1 ([facility]) Smoking 12/24/2019 12:00:00 AM EDT Current Smoker completed Curre nt Smoker eCW1 ([facility]) Vital Signs ID Date Data Source UNK Name Value Range Interpretation Code Description Data Source(s) Body weight 226.4 [lb_av] 226.4 [lb_av] eCW1 ([facility] Body weight 102.69 kg 102.69 kg eCW1 ([facility]) Body height 67 [in_i] 67 [in_i] eCW1 ([facility]) Body mass index (BMI) [Ratio] 35.46 kg/m2 35.46 kg/m2 W1 ([facility]) Heart rate 108 /min 108 /min eCW1 ([facility]) Respiratory rate 18 /min 18 /min eCW1 ([facility]) Body temperature 96.8 [degF] 96.8 [degF] eCW1 ( [facility]) Systolic blood pressure 124 mm[Hg] 124 mm[Hg] e CW1 ([facility]) Diastolic blood pressure 84 mm[Hg] 84 mm[Hg] eCW1 ([facility]) Body weight 227.6 [lb_av] 227.6 [lb_av] eCW1 ([facility] Body height 67 [in_i] 67 [in_i] eCW1 ([facility]) Body mass index (BMI) [Ratio] 35.64 kg/m2 35.64 kg/m2 eCW1 ([facility]) Heart rate 98 /min 98 /min eCW1 ([facility]) Respiratory rate 18 /min 18 /min eCW1 ([facility]) Body temperature 98.1 [degF] 98.1 [degF] eCW1 ( [facility]) Systolic blood pressure 142 mm[Hg] 142 mm[Hg] e CW1 ([facility]) Diastolic blood pressure 88 mm[Hg] 88 mm[Hg] eCW1 ([facility]) Body weight 228.6 [lb_av] 228.6 [lb_av] eCW1 ([facility] Body height 67 [in_i] 67 [in_i] eCW1 ([facility]) Body mass index (BMI) [Ratio] 35.80 kg/m2 35.80 kg/m2 eCW1 ([facility]) Heart rate 97 /min 97 /min eCW1 ([facility]) Respiratory rate 18 /min 18 /min eCW1 ([facility]) Body temperature 98.0 [degF] 98.0 [degF] eCW1 ( [facility]) Systolic blood pressure 126 mm[Hg] 126 mm[Hg] e CW1 ([facility]) Diastolic blood pressure 86 mm[Hg] 86 mm[Hg] eCW1 ([facility]) Systolic blood pressure 134 mm[Hg] 134 mm[Hg] e CW1 ([facility]) Body weight 226.0 [lb_av] 226.0 [lb_av] eCW1 ([facility] Body height 67 [in_i] 67 [in_i] eCW1 ([facility]) Body mass index (BMI) [Ratio] 35.39 kg/m2 35.39 kg/m2 eCW1 ([facility]) Heart rate 103 /min 103 /min eCW1 ([facility]) Diastolic blood pressure 88 mm[Hg] 88 mm[Hg] eCW1 ([facility]) Respiratory rate 18 /min 18 /min eCW1 ([facility]) Body temperature 97.3 [degF] 97.3 [degF] eCW1 ( [facility]) Body weight 226 [lb_av] 226 [lb_av] eCW1 ([facility]) Body height 67 [in_i] 67 [in_i] eCW1 ([facility]) Systolic blood pressure 138 mm[Hg] 138 mm[Hg] e CW1 ([facility]) Body mass index (BMI) [Ratio] 35.39 kg/m2 35.39 kg/m2 eCW1 ([facility]) Heart rate 105 /min 105 /min eCW1 ([facility]) Diastolic blood pressure 82 mm[Hg] 82 mm[Hg] eCW1 ([facility]) Respiratory rate 18 /min 18 /min eCW1 ([facility]) Body temperature 97.4 [degF] 97.4 [degF] eCW1 ( [facility]) Heart rate 99 /min 99 /min eCW1 ([facility]) Body weight 226.2 [lb_av] 226.2 [lb_av] eCW1 ([facility] Body height 67 [in_i] 67 [in_i] eCW1 ([facility]) Body mass index (BMI) [Ratio] 35.42 kg/m2 35.42 kg/m2 eCW1 ([facility]) Respiratory rate 18 /min 18 /min eCW1 ([facility]) Body temperature 97.4 [degF] 97.4 [degF] eCW1 ( [facility]) Systolic blood pressure 132 mm[Hg] 132 mm[Hg] e CW1 ([facility]) Diastolic blood pressure 86 mm[Hg] 86 mm[Hg] eCW1 ([facility]) Body height 67 [in_i] 67 [in_i] eCW1 ([facility]) Body mass index (BMI) [Ratio] 35.08 kg/m2 35.08 kg/m2 eCW1 ([facility]) Body weight 224 [lb_av] 224 [lb_av] eCW1 ([facility]) Heart rate 115 /min 115 /min eCW1 ([facility]) Respiratory rate 18 /min 18 /min eCW1 ([facility]) Body temperature 97.9 [degF] 97.9 [degF] eCW1 ( [facility]) Systolic blood pressure 142 mm[Hg] 142 mm[Hg] e CW1 ([facility]) Diastolic blood pressure 90 mm[Hg] 90 mm[Hg] eCW1 ([facility]) Diastolic blood pressure 80 mm[Hg] 80 mm[Hg] eCW1 ([facility]) Body weight 223.4 [lb_av] 223.4 [lb_av] eCW1 ([facility] Body height 67 [in_i] 67 [in_i] eCW1 ([facility]) Body mass index (BMI) [Ratio] 34.99 kg/m2 34.99 kg/m2 eCW1 ([facility]) Heart rate 120 /min 120 /min eCW1 ([facility]) Respiratory rate 18 /min 18 /min eCW1 ([facility]) Body temperature 97.3 [degF] 97.3 [degF] eCW1 ( [facility]) Systolic blood pressure 124 mm[Hg] 124 mm[Hg] e CW1 ([facility]) Body weight 231 [lb_av] 231 [lb_av] eCW1 ([facility]) Body height 67 [in_i] 67 [in_i] eCW1 ([facility]) Body mass index (BMI) [Ratio] 36.18 kg/m2 36.18 kg/m2 eCW1 ([facility]) Heart rate 96 /min 96 /min eCW1 ([facility]) Respiratory rate 18 /min 18 /min eCW1 ([facility]) Body temperature 97.3 [degF] 97.3 [degF] eCW1 ( [facility]) Systolic blood pressure 126 mm[Hg] 126 mm[Hg] e CW1 ([facility]) Diastolic blood pressure 90 mm[Hg] 90 mm[Hg] eCW1 ([facility]) Patient Treatment Plan of Care Planned Activity Planned Date Details Description Data Source (s) Erythromycin 0.005 MG/MG Ophthalmic Ointment 09/17/2020 12:00:00 AM EDT eCW1 ([facility]) Fenofibrate 134 MG Oral Capsule 07/12/2020 12:00:00 AM EDT eCW1 ([facility]) Fenofibrate 134 MG Oral Capsule 07/12/2020 12:00:00 AM EDT eCW1 ([facility]) Fenofibrate 134 MG Oral Capsule 07/12/2020 12:00:00 AM EDT eCW1 ([facility]) Vascepa 2 GM 07/08/2020 12:00:00 AM EDT e CW1 ([facility]) Fenofibrate 40 MG Oral Tablet [Fenoglide] 07/08/2020 12:00:00 AM ED T eCW1 ([facility]) Vascepa 2 GM 07/08/2020 12:00:00 AM EDT e CW1 ([facility]) Fenofibrate 40 MG Oral Tablet [Fenoglide] 07/08/2020 12:00:00 AM ED T eCW1 ([facility]) Vascepa 2 GM 07/08/2020 12:00:00 AM EDT e CW1 ([facility]) Fenofibrate 40 MG Oral Tablet [Fenoglide] 07/08/2020 12:00:00 AM ED T eCW1 ([facility]) Vascepa 2 GM 07/08/2020 12:00:00 AM EDT e CW1 ([facility]) Fenofibrate 40 MG Oral Tablet [Fenoglide] 07/08/2020 12:00:00 AM ED T eCW1 ([facility]) Vascepa 2 GM 07/08/2020 12:00:00 AM EDT e CW1 ([facility]) Fenofibrate 40 MG Oral Tablet [Fenoglide] 07/08/2020 12:00:00 AM ED T eCW1 ([facility]) Steglatro 5 MG 04/28/2020 12:00:00 AM EST eCW1 ([facility]) Steglatro 5 MG 04/28/2020 12:00:00 AM EST eCW1 ([facility]) Steglatro 5 MG 04/28/2020 12:00:00 AM EST eCW1 ([facility]) dapagliflozin 5 MG Oral Tablet [Farxiga] 04/27/2020 12:00:00 AM EST eCW1 ([facility]) dapagliflozin 5 MG Oral Tablet [] 04/27/2020 12:00:00 AM EST eCW1 ([facility]) dapagliflozin 5 MG Oral Tablet [] 04/27/2020 12:00:00 AM EST eCW1 ([facility]) Metformin hydrochloride 1000 MG Oral Tablet 02/13/2020 12:00:00 AM EST eCW1 ([facility]) Fenofibrate 145 MG Oral Tablet 02/13/2020 12:00:00 AM EST eCW1 ([facility]) Metformin hydrochloride 1000 MG Oral Tablet 02/13/2020 12:00:00 AM EST eCW1 ([facility]) Fenofibrate 145 MG Oral Tablet 02/13/2020 12:00:00 AM EST eCW1 ([facility])
[2021-01-17] MEDS ORDERED: FENO134C (07:56)
[2021-01-17] MEDS ORDERED: FARX1TAB3 PO (07:56)
[2021-01-17 08:55] LABS: HEMATOCRIT 48.4 % (42.0-52.0); HEMOGLOBIN 16.2 g/dl (13.5-17.5); MEAN CORPUSCULAR HEMOGLOBIN 28.5 pg (27.0-33.0); MEAN CORPUSCULAR HGB CONC 33.5 g/dl (32.0-36.5); MEAN CORPUSCULAR VOLUME 85.2 fl (80.0-96.0); PLATELET COUNT, AUTOMATED 214 10^3/uL (150-450); RED BLOOD COUNT 5.68 10^6/uL (4.30-6.10); WHITE BLOOD COUNT 7.8 10^3/uL (4.0-10.0)
--- OUTSIDE RECORDS SUMMARY | 2021-01-17 09:01 | CCD ---
Author Author [facility] Organization [facility] Address Unknown Phone Unavailable Support Name Relationship Address Phone [facility] [place] [address] [id number]* Next Of Kin [address] [place] [address] Daria LAWRENCE-Malika DOBBS Next Of Kin [address] [place] [phone] ROSSANA ROSS Next Of Kin [address] [place] [address] [employer] [place] [address] ROSSANA STEWART Next Of Kin [address] [place] [address] [place] [address] [phone] Re-disclosure Warning The records that you are [...] is protected by Article 27-F of the [place] State Public Health law. If you continue you may have access to information: Regarding HIV / AIDS; Provided by facilities licensed or operated by the [facility] Office of Mental Health; or Provided by the [facility] Office for People With Developmental Disabilities. If such information is present, then the following [facility] mandated warning applies: This information has been [...] law may result in a fine or senior living sentence or both. A general authorization for the release of medical or other information is NOT sufficient authorization for further disc losure. Encounters Encounter Providers Location Date Indications Data Source(s ) Unknown [address] [facility] [place] [address] 11/04/2020 12:00:00 AM EDT eCW1 [facility]) Outpatient [address] [facility] [place] [address] 10/19/2020 12:00:00 AM EDT eCW1 ([facility]) Unknown [address] [facility] [place] [address] 09/24/2020 12:00:00 AM EDT eCW1 ([facility]) Outpatient [address] [facility] [place] [address] 09/17/2020 12:00:00 AM EDT eCW1 ([facility]) Outpatient [address] [facility] [place] [address] 08/05/2020 12:00:00 AM EDT eCW1 [facility] [address] [facility] [place] [address] 07/22/2020 12:00:00 AM EDT eCW1 ([facility]) Unknown [address] [facility] [place] [address] 07/12/2020 12:00:00 AM EDT eCW1 ([facility]) Unknown [address] [facility] [place] [address] 07/12/2020 12:00:00 AM EDT eCW1 ([facility]patient [address] [facility] [place] [address] 07/09/2020 12:00:00 AM EDT eCW1 ([facility]) Unknown [address] [facility] [place] [address] 07/09/2020 12:00:00 AM EDT eCW1 ([facility]) Unknown [address] [facility] [place] [address] 07/09/2020 12:00:00 AM EDT eCW1 ([facility]) Unknown [address] [facility] [place] [address] 07/09/2020 12:00:00 AM EDT eCW1 ([facility]) Outpatient [address] [facility] [place] [address] 07/08/2020 12:00:00 AM EDT eCW1 ([facility]) Unknown [address] [facility] [place] [address] 05/03/2020 12:00:00 AM EST eCW1 ([facility]) Unknown [address] [facility] [place] [address] 04/28/2020 12:00:00 AM EST eCW1 ([facility]) Outpatient [address] [facility] [place] [address] 04/27/2020 12:00:00 AM EST eCW1 ([facility]) Unknown [address] [facility] [place] [address] 03/08/2020 12:00:00 AM EST eCW1 ([facility]) Outpatient [address] [facility] [place] [address] 02/13/2020 12:00:00 AM EST eCW1 ([facility]) Outpatient [address] [facility] [place] [address] 12/24/2019 12:00:00 AM EDT eCW1 ([facility]) Unknown [address] [facility] [place] [address] 12/09/2019 12:00:00 AM EDT eCW1 ([facility]) Immunizations Vaccine Date Status Description Data Source(s) COVID-19 VACC,MRNA(MODERNA)/PF 07/12/2020 12:00:00 AM EDT completed [facility] COVID-19 VACCINE Moderna 07/12/2020 12:00:00 AM EDT completed [facility] Vaccine Series Complete: YESThis Data wa s Submitted to [facility] Via [facility]. COVID-19 VACCINE Moderna 06/15/2020 12:00:00 AM EDT completed [facility] Vaccine Series Complete: NOThis Data was Submitted to [facility] Via [employer]. COVID-19 VACCINE, MRNA-1273, LNP-S (MODERNA)/PF 06/15/2020 1 [...] AM EDT active Erythromycin 5 MG/GM eCW1 ([facility]) 5 mg/gram (0.5 %) 09/17/2020 12:00:00 AM [...] active Fenofibrate Micronized 134 MG eC W1 ([facility]) Fenofibrate 134 MG Oral Capsule Fenofibrate Micronized 134 MG Fenofibrate Micronized 134 MG 07/12/2020 12:00:00 AM EDT 1.0 {capsule_with_a_meal} active Fenofibrate Micronized 134 MG eC W1 ([facility]) Fenofibrate 134 MG Oral Capsule Fenofibrate Micronized 134 MG Fenofibrate Micronized 134 MG 07/12/2020 12:00:00 AM EDT 1.0 {capsule_with_a_meal} active Fenofibrate Micronized 134 MG eC W1 ([facility]) Fenofibrate 134 MG Oral Capsule Fenofibrate Micronized 134 MG Fenofibrate Micronized 134 MG 07/12/2020 12:00:00 AM EDT 1.0 {capsule_with_a_meal} active Fenofibrate Micronized 134 MG eC W1 ([facility]) Fenofibrate 134 MG Oral Capsule Fenofibrate Micronized 134 MG Fenofibrate Micronized 134 MG 07/12/2020 12:00:00 AM EDT 1.0 {capsule_with_a_meal} active Fenofibrate Micronized 134 MG eC W1 ([facility]) Fenofibrate 134 MG Oral Capsule Fenofibrate Micronized 134 MG Fenofibrate Micronized 134 MG 07/12/2020 12:00:00 AM EDT 1.0 {capsule_with_a_meal} active Fenofibrate Micronized 134 MG eC W1 ([facility]) Fenofibrate 134 MG Oral Capsule Fenofibrate Micronized 134 MG Fenofibrate Micronized 134 MG 07/12/2020 12:00:00 AM EDT 1.0 {capsule_with_a_meal} active Fenofibrate Micronized 134 MG eC W1 ([facility]) Fenofibrate 134 MG Oral Capsule Fenofibrate Micronized 134 MG Fenofibrate Micronized 134 MG 07/12/2020 12:00:00 AM EDT 1.0 {capsule_with_a_meal} active Fenofibrate Micronized 134 MG eC W1 ([facility]) 40 mg 07/09/2020 12:00:00 AM EDT capsule,delayed [...] 1.0 {tablet_with_food} active Fenoglide 40 MG eCW1 ([facility]) Fenofibrate 40 MG Oral Tablet [Fenoglide] Fenoglide 40 MG Fe noglide 40 MG 07/08/2020 12:00:00 AM EDT 1.0 {tablet_with_food} active Fenoglide 40 MG eCW1 ([facility]) Fenofibrate 40 MG Oral Tablet [Fenoglide] Fenoglide 40 MG Fe noglide 40 MG 07/08/2020 12:00:00 AM EDT 1.0 {tablet_with_food} active Fenoglide 40 MG eCW1 ([facility]) Fenofibrate 40 MG Oral Tablet [Fenoglide] Fenoglide 40 MG Fe noglide 40 MG 07/08/2020 12:00:00 AM EDT 1.0 {tablet_with_food} active Fenoglide 40 MG eCW1 ([facility]) Fenofibrate 40 MG Oral Tablet [Fenoglide] Fenoglide 40 MG Fe noglide 40 MG 07/08/2020 12:00:00 AM EDT 1.0 {tablet_with_food} active Fenoglide 40 MG eCW1 ([facility]) Vascepa 2 GM UNK 07/08/2020 12:00:00 AM EDT activ e Vascepa 2 GM eCW1 ([facility]) Vascepa 2 GM UNK 07/08/2020 12:00:00 AM EDT activ e Vascepa 2 GM eCW1 ([facility]) Vascepa 2 GM UNK 07/08/2020 12:00:00 AM EDT activ e Vascepa 2 GM eCW1 ([facility]) Fenofibrate 40 MG Oral Tablet [Fenoglide] Fenoglide 40 MG Fe noglide 40 MG 07/08/2020 12:00:00 AM EDT 1.0 {tablet_with_food} active Fenoglide 40 MG eCW1 ([facility]) Vascepa 2 GM UNK 07/08/2020 12:00:00 AM EDT activ e Vascepa 2 GM eCW1 ([facility]) Vascepa 2 GM UNK 07/08/2020 12:00:00 AM EDT activ e Vascepa 2 GM eCW1 ([facility]) Vascepa 2 GM UNK 07/08/2020 12:00:00 AM EDT activ e Vascepa 2 GM eCW1 ([facility]) Vascepa 2 GM UNK 07/08/2020 12:00:00 AM EDT activ e Vascepa 2 GM eCW1 ([facility]) Vascepa 2 GM UNK 07/08/2020 12:00:00 AM EDT activ e Vascepa 2 GM eCW1 ([facility]) Vascepa 2 GM UNK 07/08/2020 12:00:00 AM EDT activ e Vascepa 2 GM eCW1 ([facility]) Fenofibrate 40 MG Oral Tablet [Fenoglide] Fenoglide 40 MG Fe noglide 40 MG 07/08/2020 12:00:00 AM EDT 1.0 {tablet_with_food} active Fenoglide 40 MG eCW1 ([facility]) Fenofibrate 40 MG Oral Tablet [Fenoglide] Fenoglide 40 MG Fe noglide 40 MG 07/08/2020 12:00:00 AM EDT 1.0 {tablet_with_food} active Fenoglide 40 MG eCW1 ([facility]) Fenofibrate 40 MG Oral Tablet [Fenoglide] Fenoglide 40 MG Fe noglide 40 MG 07/08/2020 12:00:00 AM EDT 1.0 {tablet_with_food} active Fenoglide 40 MG eCW1 ([facility]) 10 mg 06/01/2020 12:00:00 AM EDT tablet [...] {ta blet} active Steglatro 5 MG eCW1 ([facility]) Steglatro 5 MG Steglatro 5 MG 04/28/2020 12:00:00 AM EST 1.0 {ta blet} active Steglatro 5 MG eCW1 ([facility]) Steglatro 5 MG Steglatro 5 MG 04/28/2020 12:00:00 AM EST 1.0 {ta blet} active Steglatro 5 MG eCW1 ([facility]) dapagliflozin 5 MG Oral Tablet [Farxiga] Farxiga 5 MG Farxig a 5 MG 04/27/2020 12:00:00 AM EST 1.0 {tablet} active Fa rxiga 5 MG eCW1 ([facility]) 80 mg 04/27/2020 12:00:00 AM EST tablet 30 TAKE ONE TABLET BY MOUTH EVERY DAY TAKE ONE TABLET BY MOUTH EVERY DAY SOLD: 09/26/2020 [facility] dapagliflozin 5 MG Oral Tablet [Farxiga] Farxiga 5 MG Farxig a 5 MG 04/27/2020 12:00:00 AM EST 1.0 {tablet} active Fa rxiga 5 MG eCW1 ([facility]) 80 mg 04/27/2020 12:00:00 AM EST tablet [...] {tablet} active Fa rxiga 5 MG eCW1 ([facility]) 80 mg 04/27/2020 12:00:00 AM EST tablet [...] DAY WITH A MEAL SOLD: 02/21/2020 [facility] Metformin hydrochloride 1000 MG Oral Tablet Metformin HCl 1000 MG Metformin HCl 1000 MG 02/13/2020 12:00:00 AM EST 1.0 {tablet_with_a_meal} active Metformin HCl 1000 MG eCW1 ([facility]) Fenofibrate 145 MG Oral Tablet Fenofibrate 145 MG 02/13/2020 12:00: 00 AM EST 1.0 {tablet} active Fenofibrate 145 MG eCW1 ([facility]) Metformin hydrochloride 1000 MG Oral Tablet Metformin HCl 1000 MG Metformin HCl 1000 MG 02/13/2020 12:00:00 AM EST 1.0 {tablet_with_a_meal} active Metformin HCl 1000 MG eCW1 ([facility]) Fenofibrate 145 MG Oral Tablet Fenofibrate 145 MG 02/13/2020 12:00: 00 AM EST 1.0 {tablet} active Fenofibrate 145 MG eCW1 ([facility]) 500 mg 02/12/2020 12:00:00 AM EST tablet [...] FOR PAIN SOLD: 12/11/2019 [facility] s [id number] 12/09/2019 12:00:00 AM EDT Suspension 240 SWISH [...] type / Coverage type Policy ID Covered constitution party ID Covered constitution party's relationship to guthrie Policy Guthrie Plan Information [facility] [id number] SP [id number] [facility] [id number] SP [id number] [facility] O [id number] S [id number] Managed Care BCBS P [id number] S [id number] Medicaid S [id number] S [id number] ANS-Medicaid [id number] ANS-Medicaid [id number] ANS-Medicaid [id number] ANSI-Medicaid [id number] MEDICAID [id number] SP [id number] MEDICAID [id number] SP [id number] SELF PAY UNAVAILABLE SP UNAVAILA BLE Problems, Conditions, and Diagnoses Code Display Name Description Problem Type Effective Dates Data Source(s) F17.200 [id number] Nicotine use disorder Problem 10/19/2020 12: 00:00 AM EDT eCW1 ([facility]) K21.9 Gastroesophageal reflux disease without esophagitis Gastroesophageal reflux disease without esophagitis Problem 07/09/2020 12:00:00 AM ED T eCW1 ([facility]) E11.69 [id number] Type 2 diabetes clovis itus with other specified complication, without long-term current use of insulin Problem 07/09/2020 12:00:00 AM EDT eCW1 ([facility]) 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 [id number] 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 Problem 06/16/2020 12:00: 00 AM EDT eCW1 ([facility]) Z95.5 [id number] 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 Problem 06/16/2020 12:00:00 AM EDT eCW1 ([facility]) E11.9 [id number] New onset type 2 diabetes mellitus Proble m 02/13/2020 12:00:00 AM EST eCW1 ([facility]) E78.00 [id number] Hypercholesteremia Problem 02/13/2020 12:00: 00 AM EST eCW1 ([facility]) Surgeries/Procedures Procedure Description Date Indications Data Source(s) ECG ROUTINE ECG W/LEAST 12 LDS W/I&R 04/27/2020 12:00: 00 AM EST eCW1 ([facility]) Results ID Date Data Source ZNT8 Antibodies 10/29/2020 12:00:00 AM EDT eCW1 ([facility]) Name Value Range Interpretation Code Description Data Sonya rce(s) Supporting Document(s) <15 . ZNT8 ABS eCW1 ([facility]) ID Date Data Source IgG SUBCLASS 4 10/29/2020 12:00:00 AM EDT eCW1 ([facility]) Name Value Range Interpretation Code Description Data Sonya rce(s) Supporting Document(s) 20 2-96 IgG SUBCLASS 4(ONLY) eCW1 ([facility]) ID Date Data Source Islet Cell Antibodies 10/29/2020 12:00:00 AM EDT eCW1 ([facility]) Name Value Range Interpretation Code Description Data Sonya rce(s) Supporting Document(s) Negative Neg:<1:1 ISLET CELL ANTIBODIES eCW 1 ([facility]) ID Date Data Source INSULIN ANTIBODY 10/29/2020 [...] Supporting Document(s) 28.6 2.6-24.9 INSULIN LEVEL eCW1 ([facility]) ID Date Data Source ALONDRA-65 AUTOANTIBODY 10/29/2020 12:00:00 AM EDT eCW1 ([facility]) Name Value Range Interpretation Code Description Data Sonya rce(s) Supporting Document(s) <5.0 0.0-5.0 ALONDRA-65 AUTOANTIBODY eCW1 ([facility]) ID Date Data Source TSH 10/29/2020 12:00:00 AM EDT eCW1 ([facility]) Name Value Range Interpretation Code Description Data Sonya rce(s) Supporting Document(s) 1.960 0.358-3.740 THYROID STIMULATING HORM ONE eCW1 ([facility]) ID Date Data Source TOTAL IRON BINDING CAPACIT 10/29/2020 12:00:00 AM EDT eCW1 ( [facility]) Name Value Range Interpretation Code Description Data Sonya rce(s) Supporting Document(s) 78 65-175 IRON (FE) eCW1 ([facility]) 450 250-450 TOTAL IRON BINDING CAPACI TY eCW1 ([facility]) 17.3 19.7-50.0 PERCENT SATURATION eCW1 ([facility]) ID Date Data Source IMMUNOGLOBULIN G 10/29/2020 12:00:00 AM EDT eCW1 ([facility]) Name Value Range Interpretation Code Description Data Sonya rce(s) Supporting Document(s) [phone] IMMUNOGLOBULIN G eCW1 ([facility]) ID Date Data Source FREE T4 10/29/2020 12:00:00 AM EDT eCW1 ([facility]) Name Value Range Interpretation Code Description Data Sonya rce(s) Supporting Document(s) 1.00 0.76-1.46 FREE T4 eCW1 ([facility]) ID Date Data Source FERRITIN 10/29/2020 12:00:00 AM EDT eCW1 ([facility]) Name Value Range Interpretation Code Description Data Sonya rce(s) Supporting Document(s) 980 52-887 FERRITIN eCW1 ([facility]) ID Date Data Source Comprehensive Metabolic Profile (CMP) 10/29/2020 12:00:00 AM EDT eCW1 ([facility]) Name Value Range Interpretation Code Description Data Sonya rce(s) Supporting Document(s) 12 7-18 BLOOD UREA NITROGEN eCW1 ([facility]) 98 70-100 GLUCOSE, FASTING eCW1 ([facility]) 4.3 3.5-5.1 POTASSIUM SERUM eCW1 ([facility]) 138 136-145 SODIUM LEVEL eCW1 ([facility]) > 60.0 >60 GLOMERULAR FILTRATION RATE eCW 1 ([facility]) 0.94 0.70-1.30 CREATININE FOR GFR eCW1 ([facility]) 9.1 8.5-10.1 CALCIUM LEVEL eCW1 ([facility]) 130 7-37 AST/SGOT eCW1 ([facility]) 27 21-32 CARBON DIOXIDE LEVEL eCW1 ([facility]) 108 98-107 CHLORIDE LEVEL eCW1 ([facility]) 72 45-117 ALKALINE PHOSPHATASE eCW1 ([facility]) 0.7 0.2-1.0 BILIRUBIN,TOTAL eCW1 ([facility]) 173 12-78 ALT/SGPT eCW1 ([facility]) 7.4 6.4-8.2 TOTAL PROTEIN eCW1 ([facility]) 3.9 3.2-5.2 ALBUMIN eCW1 ([facility]) 1.1 ALBUMIN/GLOBULIN RATIO eCW1 ([facility]) ID Date Data Source LIPID PANEL (CARDIAC RISK) 10/11/2020 12:00:00 AM EDT eCW1 ( [facility]) Name Value Range Interpretation Code Description Data Sonya rce(s) Supporting Document(s) Cholesterol in LDL [Mass/volume] in Serum or Plasma by calculation 68 <100 LDL CHOLESTEROL eCW1 ([facility]) Triglyceride [Mass/volume] in Serum or Plasma by calculation 2122 <150 TRIGLYCERIDES LEVEL eCW1 ([facility]) Cholesterol in HDL [Moles/volume] in Serum or Plasma 24 >40 HDL CHOLESTEROL eCW1 ([facility]) Cholesterol [Moles/volume] in Serum or Plasma 224 <200 CHOLESTEROL LEVEL eCW1 ([facility]) 200 NON-HDL-C eCW1 ([facility]) 9.333 <5 CHOLESTEROL RISK RATIO eCW1 ([facility]) ID Date Data Source [id number] 10/11/2020 12:00:00 AM EDT eCW1 ([facility]) Name Value Range Interpretation Code Description Data Sonya rce(s) Supporting Document(s) Hemoglobin A1c/Hemoglobin.total in Blood 7.7 HEMOGLOBIN A1c eCW1 ([facility]) ID Date Data Source UA URINALYSIS 02/13/2020 12:00:00 AM EST eCW1 ([facility]) Name Value Range Interpretation Code Description Data Sonya rce(s) Supporting Document(s) UA URINALYSIS eCW1 ([facility]) Procedure Social History Code Duration Value Status Description Data Source(s ) Smoking 10/19/2020 12:00:00 AM EDT Current Smoker completed Curre nt Smoker eCW1 ([facility]) Smoking 10/19/2020 12:00:00 AM EDT Current Smoker completed Curre nt Smoker eCW1 ([facility]) Smoking 10/19/2020 12:00:00 AM EDT Current Smoker completed Curre nt Smoker eCW1 ([facility]) Smoking 09/17/2020 12:00:00 AM EDT Current Smoker completed Curre nt Smoker eCW1 ([facility]) Smoking 08/03/2020 12:00:00 AM EDT Current Smoker completed Curre nt Smoker eCW1 ([facility]) Smoking 08/03/2020 12:00:00 AM EDT Current Smoker completed Curre nt Smoker eCW1 ([facility]) Smoking 08/03/2020 12:00:00 AM EDT Current Smoker completed Curre nt Smoker eCW1 ([facility]) Smoking 07/20/2020 12:00:00 AM EDT Current Smoker completed Curre nt Smoker eCW1 ([facility]) Smoking 07/09/2020 12:00:00 AM EDT Current Smoker completed Curre nt Smoker eCW1 ([facility]) Smoking 07/09/2020 12:00:00 AM EDT Current Smoker completed Curre nt Smoker eCW1 ([facility]) Smoking 07/09/2020 12:00:00 AM EDT Current Smoker completed Curre nt Smoker eCW1 ([facility]) Smoking 07/09/2020 12:00:00 AM EDT Current Smoker completed Curre nt Smoker eCW1 ([facility]) Smoking 07/09/2020 12:00:00 AM EDT Current Smoker completed Curre nt Smoker eCW1 ([facility]) Smoking 04/27/2020 12:00:00 AM EST Current Smoker completed Curre nt Smoker eCW1 ([facility]) Smoking 04/27/2020 12:00:00 AM EST Current Smoker completed Curre nt Smoker eCW1 ([facility]) Smoking 04/27/2020 12:00:00 AM EST Current Smoker completed Curre nt Smoker eCW1 ([facility]) Smoking 02/13/2020 12:00:00 AM EST Current Smoker completed Curre nt Smoker eCW1 ([facility]) Smoking 02/13/2020 12:00:00 AM EST Current Smoker completed Curre nt Smoker eCW1 ([facility]) Smoking 12/24/2019 12:00:00 AM EDT Current Smoker completed Curre nt Smoker eCW1 ([facility]) Vital Signs ID Date Data Source UNK Name Value Range Interpretation Code Description Data Source(s) Body weight 226.4 [lb_av] 226.4 [lb_av] eCW1 ([facility]) Body weight 102.69 kg 102.69 kg eCW1 ([facility]) Body height 67 [in_i] 67 [in_i] eCW1 ([facility]) Body mass index (BMI) [Ratio] 35.46 kg/m2 35.46 kg/m2 W1 ([facility]) Heart rate 108 /min 108 /min eCW1 ([facility]) Respiratory rate 18 /min 18 /min eCW1 ([facility]) Body temperature 96.8 [degF] 96.8 [degF] eCW1 ( [facility]) Systolic blood pressure 124 mm[Hg] 124 mm[Hg] e CW1 ([facility]) Diastolic blood pressure 84 mm[Hg] 84 mm[Hg] eCW1 ([facility]) Body weight 227.6 [lb_av] 227.6 [lb_av] eCW1 ([facility]) Body height 67 [in_i] 67 [in_i] eCW1 ([facility]) Body mass index (BMI) [Ratio] 35.64 kg/m2 35.64 kg/m2 eCW1 ([facility]) Heart rate 98 /min 98 /min eCW1 ([facility]) Respiratory rate 18 /min 18 /min eCW1 ([facility]) Body temperature 98.1 [degF] 98.1 [degF] eCW1 ( [facility]) Systolic blood pressure 142 mm[Hg] 142 mm[Hg] e CW1 ([facility]) Diastolic blood pressure 88 mm[Hg] 88 mm[Hg] eCW1 ([facility]) Body weight 228.6 [lb_av] 228.6 [lb_av] eCW1 ([facility]) Body height 67 [in_i] 67 [in_i] eCW1 ([facility]) Body mass index (BMI) [Ratio] 35.80 kg/m2 35.80 kg/m2 eCW1 ([facility]) Heart rate 97 /min 97 /min eCW1 ([facility]) Respiratory rate 18 /min 18 /min eCW1 ([facility]) Body temperature 98.0 [degF] 98.0 [degF] eCW1 ( [facility]) Systolic blood pressure 126 mm[Hg] 126 mm[Hg] e CW1 ([facility]) Diastolic blood pressure 86 mm[Hg] 86 mm[Hg] eCW1 ([facility]) Systolic blood pressure 134 mm[Hg] 134 mm[Hg] e CW1 ([facility]) Body weight 226.0 [lb_av] 226.0 [lb_av] eCW1 ([facility]) Body height 67 [in_i] 67 [in_i] eCW1 ([facility]) Body mass index (BMI) [Ratio] 35.39 kg/m2 35.39 kg/m2 eCW1 ([facility]) Heart rate 103 /min 103 /min eCW1 ([facility]) Respiratory rate 18 /min 18 /min eCW1 ([facility]) Body temperature 97.3 [degF] 97.3 [degF] eCW1 ( [facility]) Diastolic blood pressure 88 mm[Hg] 88 mm[Hg] eCW1 ([facility]) Systolic blood pressure 138 mm[Hg] 138 mm[Hg] e CW1 ([facility]) Body weight 226 [lb_av] 226 [lb_av] eCW1 ([facility]) Body height 67 [in_i] 67 [in_i] eCW1 ([facility]) Body mass index (BMI) [Ratio] 35.39 kg/m2 35.39 kg/m2 eCW1 ([facility]) Heart rate 105 /min 105 /min eCW1 ([facility]) Respiratory rate 18 /min 18 /min eCW1 ([facility]) Body temperature 97.4 [degF] 97.4 [degF] eCW1 ( [facility]) Diastolic blood pressure 82 mm[Hg] 82 mm[Hg] eCW1 ([facility]) Heart rate 99 /min 99 /min eCW1 ([facility]) Systolic blood pressure 132 mm[Hg] 132 mm[Hg] e CW1 ([facility]) Diastolic blood pressure 86 mm[Hg] 86 mm[Hg] [facility]CW1 [facility] [facility] Respiratory rate 18 /min 18 /min eCW1 ([facility]) Body temperature 97.4 [degF] 97.4 [degF] eCW1 ( [facility]) Body weight 226.2 [lb_av] 226.2 [lb_av] eCW1 ([facility]) Body height 67 [in_i] 67 [in_i] eCW1 ([facility]) Body mass index (BMI) [Ratio] 35.42 kg/m2 35.42 kg/m2 W1 ([facility]) Body height 67 [in_i] 67 [in_i] eCW1 ([facility]) Body mass index (BMI) [Ratio] 35.08 kg/m2 35.08 kg/m2 eCW1 ([facility]) Body weight 224 [lb_av] 224 [lb_av] eCW1 ([facility]) Heart rate 115 /min 115 /min eCW1 ([facility]) Respiratory rate 18 /min 18 /min eCW1 ([facility]) Systolic blood pressure 142 mm[Hg] 142 mm[Hg] e CW1 ([facility]) Body temperature 97.9 [degF] 97.9 [degF] eCW1 ( [facility]) Diastolic blood pressure 90 mm[Hg] 90 mm[Hg] eCW1 ([facility]) Diastolic blood pressure 80 mm[Hg] 80 mm[Hg] eCW1 ([facility]) Body weight 223.4 [lb_av] 223.4 [lb_av] eCW1 ([facility]) Body height 67 [in_i] 67 [in_i] eCW1 ([facility]) Body mass index (BMI) [Ratio] 34.99 kg/m2 34.99 kg/m2 eCW1 ([facility]) Heart rate 120 /min 120 /min eCW1 ([facility]) Respiratory rate 18 /min 18 /min eCW1 ([facility]) Body temperature 97.3 [degF] 97.3 [degF] eCW1 ( [facility]) Systolic blood pressure 124 mm[Hg] 124 mm[Hg] e CW1 ([facility]) Heart rate 96 /min 96 /min eCW1 ([facility]) Respiratory rate 18 /min 18 /min eCW1 ([facility]) Body temperature 97.3 [degF] 97.3 [degF] eCW1 ( [facility]) Body weight 231 [lb_av] 231 [lb_av] eCW1 ([facility]) Systolic blood pressure 126 mm[Hg] 126 mm[Hg] e CW1 ([facility]) Diastolic blood pressure 90 mm[Hg] 90 mm[Hg] eCW1 ([facility]) Body height 67 [in_i] 67 [in_i] eCW1 ([facility]) Body mass index (BMI) [Ratio] 36.18 kg/m2 36.18 kg/m2 eCW1 ([facility]) Patient Treatment Plan of Care Planned Activity Planned Date Details Description Data Source (s) Erythromycin 0.005 MG/MG Ophthalmic Ointment 09/17/2020 12:00:00 AM EDT eCW1 ([facility]) Fenofibrate 134 MG Oral Capsule 07/12/2020 12:00:00 AM EDT eCW1 ([facility]) Fenofibrate 134 MG Oral Capsule 07/12/2020 12:00:00 AM EDT eCW1 ([facility]) Fenofibrate 134 MG Oral Capsule 07/12/2020 12:00:00 AM EDT eCW1 ([facility]) Vascepa 2 GM 07/08/2020 12:00:00 AM EDT e CW1 ([facility]) Fenofibrate 40 MG Oral Tablet [Fenoglide] 07/08/2020 12:00:00 AM ED T eCW1 ([facility]) Vascepa 2 GM 07/08/2020 12:00:00 AM EDT e CW1 ([facility]) Fenofibrate 40 MG Oral Tablet [Fenoglide] 07/08/2020 12:00:00 AM ED T eCW1 ([facility]) Vascepa 2 GM 07/08/2020 12:00:00 AM EDT e CW1 ([facility]) Fenofibrate 40 MG Oral Tablet [Fenoglide] 07/08/2020 12:00:00 AM ED T eCW1 ([facility]) Vascepa 2 GM 07/08/2020 12:00:00 AM EDT e CW1 ([facility]) Fenofibrate 40 MG Oral Tablet [Fenoglide] 07/08/2020 12:00:00 AM ED T eCW1 ([facility]) Vascepa 2 GM 07/08/2020 12:00:00 AM EDT e CW1 ([facility]) Fenofibrate 40 MG Oral Tablet [Fenoglide] 07/08/2020 12:00:00 AM ED T eCW1 ([facility]) Steglatro 5 MG 04/28/2020 12:00:00 AM EST eCW1 ([facility]) Steglatro 5 MG 04/28/2020 12:00:00 AM EST eCW1 ([facility]) Steglatro 5 MG 04/28/2020 12:00:00 AM EST eCW1 ([facility]) dapagliflozin 5 MG Oral Tablet [Farxiga] 04/27/2020 12:00:00 AM EST eCW1 ([facility]) dapagliflozin 5 MG Oral Tablet [] 04/27/2020 12:00:00 AM EST eCW1 ([facility]) dapagliflozin 5 MG Oral Tablet [] 04/27/2020 12:00:00 AM EST eCW1 ([facility]) Metformin hydrochloride 1000 MG Oral Tablet 02/13/2020 12:00:00 AM EST eCW1 ([facility]) Fenofibrate 145 MG Oral Tablet 02/13/2020 12:00:00 AM EST eCW1 ([facility]) Metformin hydrochloride 1000 MG Oral Tablet 02/13/2020 12:00:00 AM EST eCW1 ([facility]) Fenofibrate 145 MG Oral Tablet 02/13/2020 12:00:00 AM EST eCW1 ([facility])
[2021-01-17 09:11] LABS: ATYPICAL LYMPH 3 % (0-5); BASOPHILS 1 % (0-1); EOSINOPHILS 3 % (0-3); LYMPHOCYTES 28 % (16-44); MONOCYTES 13 % (0-5); NEUTROPHILS 52 % (28-66); PLATELET ESTIMATE NORMAL (NORMAL)
[2021-01-17 09:19] LABS: ALBUMIN 3.7 GM/DL (3.2-5.2); ALT/SGPT 79 U/L (12-78); BILIRUBIN,DIRECT < 0.1 MG/DL (0.0-0.2); BILIRUBIN,TOTAL 0.3 MG/DL (0.2-1.0); LIPASE 326 U/L (73-393); TOTAL PROTEIN 7.6 GM/DL (6.4-8.2)
[2021-01-17 14:36] VITALS: BP 138/72
== END 2021-01-17 14:37 | disposition home or self-care (01) ==
LOC: M ED 07:39
DX: A04.5 Campylobacter enteritis (principal); Z79.899 Other long term (current) drug therapy; F17.210 Nicotine dependence, cigarettes, uncomplicated

== ENCOUNTER 2021-10-10 21:06 | Emergency (ER) | payer OTHER ==
[~2021-10-10] VITALS: Ht 165.1 cm; Wt 101.2 kg
[~2021-10-10 21:06] MED LIST changes: +FARX1TAB3 PO; +FENO134C16; -LISI20TA20 PO; +LISI20TA37 PO; -OMEP-221 PO; +OMEP40CA5 PO
[2021-10-11 07:30] VITALS: BP 181/113
[2021-10-11 08:46] LABS: BASO # 0.1 10^3/uL (0.0-0.2); BASO % 0.4 % (0.0-1.0); EOS # 0.2 10^3/uL (0.0-0.5); EOS % 1.8 % (0.0-3.0); HEMATOCRIT 46.6 % (42.0-52.0); HEMOGLOBIN 15.6 g/dl (13.5-17.5); LYMPH # 3.3 10^3/uL (1.5-5.0); LYMPH % 27.4 % (24.0-44.0); MEAN CORPUSCULAR HEMOGLOBIN 28.6 pg (27.0-33.0); MEAN CORPUSCULAR HGB CONC 33.5 g/dl (32.0-36.5); MEAN CORPUSCULAR VOLUME 85.3 fl (80.0-96.0); MONO # 1.1 10^3/uL (0.0-0.8); MONO % 9.3 % (2.0-8.0); NEUTROPHILS # 7.3 10^3/uL (1.5-8.5); NEUTROPHILS % 60.6 % (36.0-66.0); PLATELET COUNT, AUTOMATED 157 10^3/uL (150-450); RED BLOOD COUNT 5.46 10^6/uL (4.30-6.10)
[2021-10-11 09:21] LABS: ALBUMIN 3.5 GM/DL (3.2-5.2); ALT/SGPT 111 U/L (12-78); BILIRUBIN,DIRECT 0.1 MG/DL (0.0-0.2); BILIRUBIN,TOTAL 0.8 MG/DL (0.2-1.0); BLOOD UREA NITROGEN 9 MG/DL (7-18); CALCIUM LEVEL 9.3 MG/DL (8.5-10.1); CARBON DIOXIDE LEVEL 22 MEQ/L (21-32); CHLORIDE LEVEL 104 MEQ/L (98-107); CREATININE FOR GFR 0.82 MG/DL (0.70-1.30); GLOMERULAR FILTRATION RATE > 60.0 (>60); GLUCOSE, FASTING 254 MG/DL (70-100); LIPASE 405 U/L (73-393); POTASSIUM SERUM 4.2 MEQ/L (3.5-5.1); SODIUM LEVEL 137 MEQ/L (136-145); TOTAL PROTEIN 7.3 GM/DL (6.4-8.2)
[2021-10-11 09:22] LABS: CK-MB VALUE MASS 1.5 NG/ML (<3.6); MB/CK RELATIVE INDEX 0.87 (< OR =4)
[2021-10-11 09:28] VITALS: BP 140/100
== END 2021-10-11 09:54 | disposition home or self-care (01) ==
LOC: M ED 21:06
DX: R06.02 Shortness of breath (principal); R10.10 Upper abdominal pain, unspecified; R00.0 Tachycardia, unspecified; K21.9 Gastro-esophageal reflux disease without esophagitis; E11.9 Type 2 diabetes mellitus without complications; F17.200 Nicotine dependence, unspecified, uncomplicated; I10 Essential (primary) hypertension; Z79.84 Long term (current) use of oral hypoglycemic drugs

== ENCOUNTER → 2021-10-24 | Outpatient (REF) | payer OTHER | LOC: M SFHCPLAZ 14:27 | PROVIDERS: ATTEND Family Medicine | DX: K85.10 Biliary acute pancreatitis without necrosis or infection (principal); Z53.9 Procedure and treatment not carried out, unspecified reason ==

== ENCOUNTER → 2021-10-24 | Outpatient (CLI) | payer OTHER ==
[2021-10-24 18:11] LABS: CHOLESTEROL RISK RATIO 5.459 (<5)
== END ==
LOC: M PLALAB 14:35
DX: K85.10 Biliary acute pancreatitis without necrosis or infection (principal)

== ENCOUNTER → 2022-01-12 | Outpatient (CLI) | payer OTHER ==
[~2022-01-12] MED LIST changes: -FENO134C16; +FENO134C20
[2022-01-12 17:23] LABS: HEMOGLOBIN A1c 8.3 %
== END ==
LOC: M PLALAB 14:11
PROVIDERS: ATTEND Student in an Organized Health Care Education/Training Program
DX: E11.69 Type 2 diabetes mellitus with other specified complication (principal)

== ENCOUNTER → 2022-12-06 | Outpatient (CLI) | payer OTHER ==
[2022-12-06 13:58] LABS: MEAN CORPUSCULAR HEMOGLOBIN 29.5 pg (27.0-33.0); MEAN CORPUSCULAR HGB CONC 33.6 g/dl (32.0-36.5); MEAN CORPUSCULAR VOLUME 87.7 fl (80.0-96.0); PLATELET COUNT, AUTOMATED 218 10^3/uL (150-450); WHITE BLOOD COUNT 11.5 10^3/uL (4.0-10.0)
[2022-12-06 14:02] LABS: RED BLOOD COUNT 5.87 10^6/uL (4.30-6.10)
[2022-12-06 14:03] LABS: HEMATOCRIT 51.5 % (42.0-52.0); HEMOGLOBIN 17.3 g/dl (13.5-17.5)
[2022-12-06 14:37] LABS: ATYPICAL LYMPH 1 % (0-5); BASOPHILS 1 % (0-1); EOSINOPHILS 2 % (0-3); LYMPHOCYTES 49 % (16-44); MONOCYTES 5 % (0-5); NEUTROPHILS 41 % (28-66)
[2022-12-06 14:38] LABS: PLATELET ESTIMATE NORMAL (NORMAL)
[2022-12-06 14:39] LABS: OVALOCYTES 1+; POIKILOCYTOSIS 1+
[2022-12-06 15:37] LABS: HEMOGLOBIN A1c 7.7 % (4.0-6.0)
[2022-12-06 16:08] LABS: ALBUMIN 4.1 G/DL (3.2-5.2); ALKALINE PHOSPHATASE 75 U/L (46-116); ALT/SGPT 177 U/L (7.0-40); AST/SGOT 146 U/L (<34); BILIRUBIN,TOTAL 0.7 MG/DL (0.3-1.2); BLOOD UREA NITROGEN 14 MG/DL (9-23); CARBON DIOXIDE LEVEL 26 MMOL/L (20-31); CHLORIDE LEVEL 105 MMOL/L (98-107); CHOLESTEROL LEVEL 206 MG/DL (<200); CHOLESTEROL RISK RATIO 5.07 (<5); CREATININE FOR GFR 0.94 MG/DL (0.70-1.30); GLOMERULAR FILTRATION RATE > 60.0 (>60); GLUCOSE, FASTING 140 MG/DL (60-100); HDL CHOLESTEROL 40.6 MG/DL (>40); NON-HDL-C 165.4 MG/DL; POTASSIUM SERUM 4.4 MMOL/L (3.5-5.1); SODIUM LEVEL 139 MMOL/L (136-145); TOTAL PROTEIN 7.8 G/DL (5.7-8.2); TRIGLYCERIDES LEVEL 287 MG/DL (<150)
[2022-12-06 16:36] LABS: HIV 1&2 SCREEN NEGATIVE (NEGATIVE)
[2022-12-06 16:43] LABS: HEPATITIS C VIRUS ABY INDEX 0.05 INDEX (<0.8)
== END ==
LOC: M PLALAB 10:15
PROVIDERS: ATTEND Student in an Organized Health Care Education/Training Program
DX: Z00.00 Encounter for general adult medical examination without abnormal findings (principal); E11.69 Type 2 diabetes mellitus with other specified complication; E78.1 Pure hyperglyceridemia

== ENCOUNTER → 2023-03-28 | Outpatient (CLI) | payer OTHER ==
[~2023-03-28] MED LIST changes: +FLUTISP
[2023-03-28 14:30] LABS: HEMOGLOBIN A1c 8.6 % (4.0-6.0)
[2023-03-28 14:41] LABS: CHOLESTEROL RISK RATIO 4.46 (<5); HDL CHOLESTEROL 39.6 MG/DL (>40); NON-HDL-C 137.4 MG/DL
== END ==
LOC: M PLALAB 09:46
PROVIDERS: ATTEND Student in an Organized Health Care Education/Training Program
DX: E11.69 Type 2 diabetes mellitus with other specified complication (principal)

== ENCOUNTER 2023-03-29 20:52 | Emergency (ER) | payer OTHER ==
[~2023-03-29 20:52] MED LIST changes: -FLUTISP
[2023-03-29 20:53] VITALS: BP 139/80; TEMP 98.8; O2SAT 96
[2023-03-29] MEDS ORDERED: FLUTISP (21:02)
== END 2023-03-30 03:38 | disposition left against medical advice (07) ==
LOC: M ED 20:52
DX: Z53.21 Procedure and treatment not carried out due to patient leaving prior to being seen by health care provider (principal)

== ENCOUNTER → 2023-04-27 | Outpatient (CLI) | payer OTHER ==
[~2023-04-27] MED LIST changes: +FLUTISP
[2023-04-27 13:43] LABS: ALBUMIN 3.8 G/DL (3.2-5.2); ALKALINE PHOSPHATASE 86 U/L (46-116); ALT/SGPT 138 U/L (7.0-40); AST/SGOT 90 U/L (<34); BILIRUBIN,TOTAL 0.6 MG/DL (0.3-1.2); BLOOD UREA NITROGEN 16 MG/DL (9-23); CALCIUM LEVEL 9.8 MG/DL (8.5-10.1); CARBON DIOXIDE LEVEL 26 MMOL/L (20-31); CHLORIDE LEVEL 103 MMOL/L (98-107); CREATININE FOR GFR 0.77 MG/DL (0.70-1.30); GLOMERULAR FILTRATION RATE > 60.0 (>60); GLUCOSE, FASTING 199 MG/DL (60-100); POTASSIUM SERUM 4.5 MMOL/L (3.5-5.1); SODIUM LEVEL 136 MMOL/L (136-145); TOTAL PROTEIN 7.6 G/DL (5.7-8.2)
[2023-04-27 13:47] LABS: BASO # 0.1 10^3/uL (0.0-0.2); BASO % 0.4 % (0.0-1.0); EOS # 0.2 10^3/uL (0.0-0.5); EOS % 1.5 % (0.0-3.0); HEMOGLOBIN 16.3 g/dl (13.5-17.5); LYMPH % 35.6 % (24.0-44.0); MEAN CORPUSCULAR HEMOGLOBIN 28.7 pg (27.0-33.0); MEAN CORPUSCULAR HGB CONC 32.6 g/dl (32.0-36.5); NEUTROPHILS # 5.9 10^3/uL (1.5-8.5); PLATELET COUNT, AUTOMATED 168 10^3/uL (150-450); RED BLOOD COUNT 5.68 10^6/uL (4.30-6.10); WHITE BLOOD COUNT 11.2 10^3/uL (4.0-10.0)
== END ==
LOC: M PLALAB 09:42
PROVIDERS: ATTEND Student in an Organized Health Care Education/Training Program
DX: J02.9 Acute pharyngitis, unspecified (principal)

== ENCOUNTER → 2023-07-03 | Outpatient (CLI) | payer OTHER ==
[2023-07-03 14:24] LABS: HEMOGLOBIN A1c 8.1 % (4.0-6.0)
== END ==
LOC: M PLALAB 10:04
PROVIDERS: ATTEND Student in an Organized Health Care Education/Training Program
DX: E11.69 Type 2 diabetes mellitus with other specified complication (principal)

== ENCOUNTER → 2023-07-18 | Outpatient (REF) | payer OTHER ==
[2023-07-18 15:07] LABS: CREATININE, URINE 81.9 MG/DL
[2023-07-18 15:09] LABS: MAU/CREAT RATIO 339.4 MCG/MG (0.0-30.0)
== END ==
LOC: M SFHCPLAZ 12:35
PROVIDERS: ATTEND Student in an Organized Health Care Education/Training Program
DX: E11.69 Type 2 diabetes mellitus with other specified complication (principal)

== ENCOUNTER → 2023-11-14 | Outpatient (CLI) | payer OTHER ==
[~2023-11-14] MED LIST changes: +ONDA-282 PO; -ONDA4TAB6 PO
[2023-11-14 10:35] LABS: HEMATOCRIT 51.4 % (42.0-52.0); HEMOGLOBIN 17.3 g/dl (13.5-17.5); MEAN CORPUSCULAR HGB CONC 33.7 g/dl (32.0-36.5); MEAN CORPUSCULAR VOLUME 89.1 fl (80.0-96.0); PLATELET COUNT, AUTOMATED 143 10^3/uL (150-450); RED BLOOD COUNT 5.77 10^6/uL (4.30-6.10); WHITE BLOOD COUNT 9.8 10^3/uL (4.0-10.0)
[2023-11-14 10:44] LABS: CREATININE, URINE 84.8 MG/DL
[2023-11-14 10:57] LABS: ALKALINE PHOSPHATASE 93 U/L (46-116); ALT/SGPT 89 U/L (7.0-40); AST/SGOT 54 U/L (<34); BILIRUBIN,DIRECT 0.1 MG/DL (<0.4); BILIRUBIN,TOTAL 0.6 MG/DL (0.3-1.2); BLOOD UREA NITROGEN 19 MG/DL (9-23); CALCIUM LEVEL 9.8 MG/DL (8.5-10.1); CARBON DIOXIDE LEVEL 27 MMOL/L (20-31); CHLORIDE LEVEL 105 MMOL/L (98-107); CHOLESTEROL LEVEL 200 MG/DL (<200); CHOLESTEROL RISK RATIO 5.69 (<5); CREATININE FOR GFR 0.88 MG/DL (0.70-1.30); GLOMERULAR FILTRATION RATE > 60.0 (>60); GLUCOSE, FASTING 199 MG/DL (60-100); HDL CHOLESTEROL 35.1 MG/DL (>40); NON-HDL-C 164.9 MG/DL; PHOSPHORUS LEVEL 3.8 MG/DL (2.5-4.9); POTASSIUM SERUM 4.4 MMOL/L (3.5-5.1); SODIUM LEVEL 138 MMOL/L (136-145); TOTAL PROTEIN 7.5 G/DL (5.7-8.2); TRIGLYCERIDES LEVEL 990 MG/DL (<150)
[2023-11-14 11:00] LABS: MAU/CREAT RATIO 478.7 MCG/MG (0.0-30.0)
[2023-11-14 11:30] LABS: ATYPICAL LYMPH 2 % (0-5); BASOPHILS 2 % (0-1); LYMPHOCYTES 46 % (16-44); MONOCYTES 5 % (0-5); NEUTROPHILS 45 % (28-66); PLATELET ESTIMATE NORMAL (NORMAL)
== END ==
LOC: M PLALAB 08:26
PROVIDERS: ATTEND Student in an Organized Health Care Education/Training Program
DX: Z00.00 Encounter for general adult medical examination without abnormal findings (principal); E11.69 Type 2 diabetes mellitus with other specified complication

== ENCOUNTER → 2024-01-29 | Outpatient (CLI) | payer OTHER ==
[2024-01-29 11:08] LABS: CREATININE, URINE 99.1 MG/DL
[2024-01-29 11:24] LABS: MAU/CREAT RATIO 554.9 MCG/MG (0.0-30.0)
[2024-01-29 11:30] LABS: ALBUMIN 3.9 G/DL (3.2-5.2); BLOOD UREA NITROGEN 13 MG/DL (9-23); CARBON DIOXIDE LEVEL 28 MMOL/L (20-31); CHLORIDE LEVEL 102 MMOL/L (98-107); CHOLESTEROL LEVEL 229 MG/DL (<200); CHOLESTEROL RISK RATIO 6.54 (<5); CREATININE FOR GFR 0.76 MG/DL (0.70-1.30); GLOMERULAR FILTRATION RATE > 60.0 (>60); GLUCOSE, FASTING 169 MG/DL (60-100); PHOSPHORUS LEVEL 3.3 MG/DL (2.5-4.9); POTASSIUM SERUM 4.2 MMOL/L (3.5-5.1); SODIUM LEVEL 137 MMOL/L (136-145); TRIGLYCERIDES LEVEL 1262 MG/DL (<150)
[2024-01-29 11:46] LABS: HEMOGLOBIN A1c 7.7 % (4.0-6.0)
[2024-01-30 09:32] LABS: C-PEPTIDE 5.77 ng/mL (0.80-3.85)
== END ==
LOC: M PLALAB 08:06
PROVIDERS: ATTEND Student in an Organized Health Care Education/Training Program
DX: E11.69 Type 2 diabetes mellitus with other specified complication (principal)

== ENCOUNTER → 2024-04-04 | Outpatient (CLI) | payer OTHER ==
[2024-04-04 12:11] LABS: CHOLESTEROL LEVEL 154 MG/DL (<200); CHOLESTEROL RISK RATIO 4.31 (<5); HDL CHOLESTEROL 35.7 MG/DL (>40); NON-HDL-C 118.3 MG/DL; TRIGLYCERIDES LEVEL 446 MG/DL (<150)
== END ==
LOC: M PLALAB 07:52
PROVIDERS: ATTEND Student in an Organized Health Care Education/Training Program
DX: E78.1 Pure hyperglyceridemia (principal)

== ENCOUNTER → 2024-06-10 | Outpatient (CLI) | payer OTHER ==
[2024-06-10 10:48] LABS: HEMOGLOBIN A1c 6.8 % (4.0-6.0)
[2024-06-10 11:24] LABS: ALBUMIN 4.1 G/DL (3.2-5.2); ALKALINE PHOSPHATASE 73 U/L (40-129); ALT/SGPT 62 U/L (7.0-40); AST/SGOT 37 U/L (<34); BILIRUBIN,TOTAL 0.6 MG/DL (0.3-1.2); BLOOD UREA NITROGEN 13 MG/DL (9-23); CALCIUM LEVEL 9.5 MG/DL (8.5-10.1); CARBON DIOXIDE LEVEL 25 MMOL/L (20-31); CHLORIDE LEVEL 105 MMOL/L (98-107); CHOLESTEROL LEVEL 150 MG/DL (<200); CHOLESTEROL RISK RATIO 4.32 (<5); CREATININE FOR GFR 0.83 MG/DL (0.70-1.30); GLOMERULAR FILTRATION RATE > 60.0 (>60); GLUCOSE, FASTING 144 MG/DL (60-100); HDL CHOLESTEROL 34.7 MG/DL (>40); NON-HDL-C 115.3 MG/DL; POTASSIUM SERUM 4.1 MMOL/L (3.5-5.1); SODIUM LEVEL 140 MMOL/L (136-145); TOTAL PROTEIN 7.3 G/DL (5.7-8.2); TRIGLYCERIDES LEVEL 450 MG/DL (<150)
== END ==
LOC: M PLALAB 08:14
PROVIDERS: ATTEND Family Medicine
DX: E78.1 Pure hyperglyceridemia (principal)

== ENCOUNTER → 2024-09-02 | Outpatient (REF) | payer OTHER | LOC: M SFHCPLAZ 19:43 | PROVIDERS: ATTEND Family Medicine | DX: E11.69 Type 2 diabetes mellitus with other specified complication (principal); E78.1 Pure hyperglyceridemia; Z53.9 Procedure and treatment not carried out, unspecified reason ==

== ENCOUNTER 2024-12-23 02:36 | Emergency (ER) | payer OTHER ==
[~2024-12-23] VITALS: Ht 165.1 cm; Wt 94.5 kg
[~2024-12-23 02:36] MED LIST changes: -IBUP-1022 PO; +IBUP600T42 PO
[2024-12-23] MEDS ORDERED: NITROGLYCERIN 0.4 MG SUBL TABLET SL PRN (03:00)
[2024-12-23] MEDS: ONDANSETRON 4MG/2ML VIAL IV ONE (03:05)
[2024-12-23] MEDS: HEPARIN SOD 5000 UNITS/ML 1 ML VIAL/SYRINGE IV ONE (03:06)
[2024-12-23] MEDS: ASPIRIN 81 MG CHEWABLE TABLET PO ONE (03:07)
[2024-12-23] MEDS: CLOPIDOGREL 300 MG TAB PO ONE (03:07)
[2024-12-23] MEDS: TENECTEPLASE 50 MG/10 ML VIAL IV STA (03:10)
[2024-12-23] MEDS: HEPARIN DRIP 25,000 UNITS in IV 1 EA IV SCH (03:12)
[2024-12-23 03:19] LABS: BASO # 0.1 10^3/uL (0.0-0.2); BASO % 0.5 % (0.0-1.0); EOS # 0.2 10^3/uL (0.0-0.5); EOS % 1.4 % (0.0-3.0); LYMPH # 3.5 10^3/uL (1.5-5.0); LYMPH % 30.5 % (24.0-44.0); MONO # 0.9 10^3/uL (0.0-0.8); MONO % 7.8 % (2.0-8.0); NEUTROPHILS # 6.9 10^3/uL (1.5-8.5); NEUTROPHILS % 59.5 % (36.0-66.0); PLATELET COUNT, AUTOMATED 163 10^3/uL (150-450)
[2024-12-23 03:35] VITALS: BP 140/77; TEMP 98.5; O2SAT 100
[2024-12-23 03:42] LABS: CALCIUM LEVEL 9.3 MG/DL (8.5-10.1); CARBON DIOXIDE LEVEL 25 MMOL/L (20-31); CHLORIDE LEVEL 103 MMOL/L (98-107); CK-MB VALUE MASS 8.6 NG/ML (<3.6); CREATININE FOR GFR 0.91 MG/DL (0.70-1.30); GLOMERULAR FILTRATION RATE > 90.0 (>60); POTASSIUM SERUM 4.4 MMOL/L (3.5-5.1); SODIUM LEVEL 141 MMOL/L (136-145)
[2024-12-23 03:47] LABS: INR 0.85
[2024-12-23 03:58] LABS: CPK CREATINE PHOSPHOKINASE 360 U/L (46-171); MB/CK RELATIVE INDEX 2.38 (< OR =4)
== END 2024-12-23 03:39 | disposition short-term general hospital (02) ==
LOC: M ED 02:36
DX: I21.3 ST elevation (STEMI) myocardial infarction of unspecified site (principal); E11.9 Type 2 diabetes mellitus without complications; E66.9 Obesity, unspecified; K21.9 Gastro-esophageal reflux disease without esophagitis; F17.200 Nicotine dependence, unspecified, uncomplicated; F17.290 Nicotine dependence, other tobacco product, uncomplicated; Z79.899 Other long term (current) drug therapy
CPT/HCPCS: 71045; 80048; 82550; 82553; 84484; 85025; 85610; 85730; 93005; 93041; 94760; 96374; 96375; 99285; J2405; J3101

== ENCOUNTER → 2025-01-28 | Outpatient (CLI) | payer OTHER ==
[2025-01-28 14:05] LABS: ALT/SGPT 45 U/L (7.0-40); AST/SGOT 32 U/L (<34); CALCIUM LEVEL 9.4 MG/DL (8.5-10.1); CARBON DIOXIDE LEVEL 25 MMOL/L (20-31); CHLORIDE LEVEL 104 MMOL/L (98-107); CHOLESTEROL LEVEL 130 MG/DL (<200); CHOLESTEROL RISK RATIO 3.67 (<5); CREATININE FOR GFR 0.77 MG/DL (0.70-1.30); GLOMERULAR FILTRATION RATE > 90.0 (>60); LDL CHOLESTEROL 66.6 MG/DL (<100); NON-HDL-C 94.6 MG/DL; POTASSIUM SERUM 4.5 MMOL/L (3.5-5.1); SODIUM LEVEL 141 MMOL/L (136-145); TRIGLYCERIDES LEVEL 140 MG/DL (<150)
== END ==
LOC: M PLALAB 09:27
PROVIDERS: ATTEND Internal Medicine Cardiovascular Disease
DX: I25.10 Atherosclerotic heart disease of native coronary artery without angina pectoris (principal); E78.2 Mixed hyperlipidemia

== ENCOUNTER → 2025-01-28 | Outpatient (CLI) | payer OTHER ==
[2025-01-28 14:06] LABS: ALT/SGPT 45 U/L (7.0-40); AST/SGOT 33 U/L (<34); CALCIUM LEVEL 9.3 MG/DL (8.5-10.1); CARBON DIOXIDE LEVEL 24 MMOL/L (20-31); CHLORIDE LEVEL 104 MMOL/L (98-107); CHOLESTEROL LEVEL 130 MG/DL (<200); CHOLESTEROL RISK RATIO 3.69 (<5); CREATININE FOR GFR 0.77 MG/DL (0.70-1.30); GLOMERULAR FILTRATION RATE > 90.0 (>60); GLUCOSE,RANDOM 102 MG/DL (LESS THAN 200); LDL CHOLESTEROL 66.6 MG/DL (<100); NON-HDL-C 94.8 MG/DL; POTASSIUM SERUM 4.5 MMOL/L (3.5-5.1); SODIUM LEVEL 141 MMOL/L (136-145); TRIGLYCERIDES LEVEL 141 MG/DL (<150)
[2025-01-28 14:57] LABS: ESTIMATED AVERAGE GLUCOSE 126.0 MG/DL (60-110)
== END ==
LOC: M PLALAB 09:29
DX: E11.69 Type 2 diabetes mellitus with other specified complication (principal); E78.1 Pure hyperglyceridemia